=== PATIENT | male | born 1945 | race Caucasian/White ===

== ENCOUNTER 2016-07-29 16:39 | Inpatient (IN) | payer MEDICARE ==
[2016-07-29] MEDS ORDERED: NS 0.9% 1000 ML* 1,000 ML IV ONE ×2 (17:14→18:46)
--- NOTE | 2016-07-29 17:51 | RAD ---
Indication: Increased confusion, decreased p.o. intake. Pulmonary rales. Comparison: July 07, 2016 CT. Technique: Sitting AP and lateral chest views. Report: Mild airspace consolidation in the distribution of the lingula and anteromedial segment of the LEFT lower lobe without volume loss to suggest atelectasis. Negative for pleural effusion or pneumothorax. The heart, pulmonary vasculature, and mediastinal contours are unremarkable. Coronary artery calcification or stent noted. IMPRESSION: The constellation of findings is concerning for LEFT basilar pneumonia.
[2016-07-29 18:27] LABS: Hematocrit 24 % (42-52); Mean Corpuscular HGB Conc 33 g/dl (31-36); Mean Corpuscular Hemoglobin 31 pg (27-31); Mean Corpuscular Volume 96 fL (80-94); Mean Platelet Volume 8 um3 (7.4-10.4); Red Blood Count 2.55 10^6/ul (4.0-5.4); Red Cell Distribution Width 19 % (10.5-15); White Blood Count 15.9 10^3/ul (3.5-10.8)
[2016-07-29 18:45] LABS: Albumin 3.7 g/dL (3.2-5.2); BUN/Creatinine Ratio 27.6 (8-20); C Reactive Protein 18.52 mg/L (< 5.00); Calcium 9.1 mg/dL (8.6-10.3); EGFR African American 79.4 (>60); EGFR Non-African American 61.7 (>60); Potassium 4.1 mmol/L (3.5-5.0); Total Bilirubin 0.7 mg/dL (0.2-1.0); Total Protein 6.7 g/dL (6.4-8.9)
[2016-07-29] MEDS ORDERED: Levofloxacin 500 MG IVPREMIX(* 500 MG/100 ML BAG IVPB ONE (18:45)
[2016-07-29 18:49] LABS: Troponin I 3.07 ng/mL (<0.04)
[2016-07-29 19:45] LABS: Urine Bacteria 1+ (Absent); Urine Bilirubin Negative (Negative); Urine Glucose Negative (Negative); Urine Nitrite Negative (Negative)
[2016-07-29] MEDS ORDERED: Morphine INJ* 2 MG/ML 1 ML CARPUJECT IV PRN (20:19)
[2016-07-29] MEDS ORDERED: Iodixanol* (CONTRAST) 320 MG/ML 100 ML SDV IV ONE (20:22)
[2016-07-29] MEDS ORDERED: Morphine INJ* 2 MG/ML 1 ML CARPUJECT ONE (20:25)
[2016-07-29] MEDS ORDERED: NS 0.9% 1000 ML* 1,000 ML IV SCH ×2 (20:30→20:35)
[2016-07-29 20:42] LABS: Troponin I 1.65 ng/mL (<0.04)
[2016-07-29] MEDS ORDERED: Pantoprazole IV* 40 MG ONE (20:50)
[2016-07-29] MEDS ORDERED: fentaNYL* 50 MCG/ML 2 ML VIAL (100 MCG VIAL) IV SLOW PU PRN (20:50)
[2016-07-29] MEDS ORDERED: Pantoprazole IV* 40 MG IV ONE (20:50)
[2016-07-29] MEDS ORDERED: Albuterol 2.5 MG/3 ML NEB.SOL* (0.083%) INH PRN (21:15)
[2016-07-29] MEDS ORDERED: Acetaminophen TAB* 325 MG PO PRN (21:15)
--- NOTE | 2016-07-29 21:26 | RAD ---
Indication: Nausea, vomiting, confusion. Comparison: July 07, [address] Technique: Noncontrast CT vertex of skull through foramen magnum. Report: Mild prominence of the cerebral sulci, ventricles, and cerebellar fissures reflecting atrophy. Patent basal cisterns. Negative for tripathi matter white matter obscuration, intra or extra-axial hemorrhage, or mass effect. Decreased density in the periventricular and subcortical white matter while non-specific is most likely due to chronic microangiopathy. No suspicious lesion of the calvarium or skull base. Bilateral mastoid effusions without change. Clear visualized paranasal sinuses. Unremarkable scalp. IMPRESSION: No acute intracranial process evident. Involutional change and stigmata of chronic small vessel ischemic disease.
--- NOTE | 2016-07-29 21:36 | RAD ---
INDICATION: Question infectious colitis. Nausea and vomiting. COMPARISON: July 07, 2016 CT. TECHNIQUE: Multidetector CT images were obtained from the lung bases to the ischial tuberosities with 95 mL Visipaque 320 IV and oral contrast. Multiplanar reformation. REPORT: The visualized lower lung zones remarkable for LEFT greater than RIGHT patchy basilar alveolar opacities without volume loss most consistent with pneumonia. Negative for pleural effusions. Upper normal heart size. Decreased density of the liver consistent with fatty infiltration. No focal hepatic lesions or biliary dilatation. Normally distended gallbladder with multiple dependent stones. Unremarkable pancreas and spleen. Small splenule adjacent to the anterior margin of the spleen. Small medially projecting diverticulum at the second portion of the duodenum without suggestion of acute inflammatory change. Negative for CT abdomen malleolus of the small bowel, or medially extending appendix. A few colonic diverticula are visualized without findings of acute diverticulitis. Negative for ascites, free air, hernias. Normal adrenal glands. Unremarkable kidneys with symmetric nephrograms and pyelograms. Unremarkable nondilated ureters and distended urinary bladder. Coarse prostate calcifications. Symmetric seminal vesicles. Upper normal 0.9 cm hepatic artery level lymph node decreased from 1.6 cm previously. Negative for lymphadenopathy. Atherosclerotic plaque of normal diameter abdominal aorta and iliac arteries. Normal opacification of the mesenteric arteries and renal arteries. Partially decompressed IVC consistent with low volume state. Polyarticular degenerative arthropathy. No suspicious focal osseous lesions evident. IMPRESSION: 1. LEFT greater than RIGHT basilar pneumonia. 2. Fatty infiltration of the liver. 3. Cholelithiasis without additional CT abnormality of the gallbladder . 4. Negative for obstructive uropathy. 5. Interval decrease in size of hepatic artery level lymph node. Negative for lymphadenopathy. 6. Partially decompressed IVC consistent with low volume state.
[2016-07-29] MEDS ORDERED: Furosemide IV* 10 MG/ML VIAL (40 MG) IV SLOW PU ONE (21:42)
[2016-07-29] MEDS ORDERED: Furosemide IV* 10 MG/ML VIAL (40 MG) ONE (21:43)
--- NOTE | 2016-07-29 21:45 | HP ---
HISTORY AND PHYSICAL: * ADDENDUM: ASSESSMENT: Possible pneumonia - the patient received a dose of Levaquin in the emergency department, we will continue the Levaquin as there is suspected colitis based on his diffuse abdominal tenderness and he has been complaining of abdominal pain for quite sometime. Colitis might be a source of his bleeding as well. Can add Flagyl if CT scan confirms presence of colitis. Nausea and vomiting - with his recent cerebrovascular accident and anticoagulation, we will also scan his head to look for potential bleeders. This may also be an etiology of his recent complaints of nausea and vomiting. Disposition update: The patient became hypotensive with significant amount of melena while in the emergency department. The patient will be placed in the ICU for closer monitoring overnight. MIGUEL ÁNGEL PASCUAL [id number]/CPS #: [id number]
[2016-07-29] MEDS: Pantoprazole IV* 80 MG in NS 0.9% 250 ML* 250 ML IVPB SCH (21:47)
--- NOTE | 2016-07-29 22:02 | HP ---
ADDENDUM NOW INCLUDED ON THIS REPORT ADMISSION HISTORY AND PHYSICAL: DATE OF ADMISSION: 07/29/16 PRIMARY CARE PROVIDER: Unknown. ADMITTING PROVIDER: MIGUEL ÁNGEL Pascual SUPERVISING PHYSICIAN: Dr. Doc Moon.* (DICTATED BY MIGUEL ÁNGEL PASCUAL) CHIEF COMPLAINT: Lethargy, nausea, vomiting. HISTORY OF PRESENT ILLNESS: This is a 71-year-old gentleman with recent stroke and new-onset atrial fibrillation, who was discharged from the hospital to [facility] where he has been participating in rehab there. The patient' s sister and healthcare proxy has been visiting daily and states that he was doing relatively well up until Wednesday and since then, he has been vomiting on a daily basis. He has been complaining of abdominal pain actually for the last several weeks. He has been afebrile at home. He has developed relatively new cough. Denies any shortness of breath. He has an aspiration risk and requires his liquids to be nectar thickened and solids to be ground. The patient seemed to be increasingly lethargic and started to refuse food and seemed to be increasingly confused, which prompted evaluation today. Labs were completed from [facility] earlier today, which showed profound anemia, which prompted suspicion for a GI bleed. In regards to his recent history of stroke, the patient was started on Xarelto for anticoagulation with a presumed cardioembolic source of his CVA as he was also noted to be in atrial fibrillation for the first time. His sister denies any obvious sources of bleeding and notes in his vomit, no black or coffee ground consistency. PAST MEDICAL HISTORY: 1. Recent thromboembolic CVA with left-sided weakness including facial droop and slurred speech. 2. Hyperlipidemia. 3. Atrial fibrillation, anticoagulated with Xarelto. 4. Hypertension. 5. Diet-controlled diabetes. 6. History of coronary artery disease, status post PCI - last cardiac catheterization from 2008 showed severe stenosis in the circumflex distally, which was not amenable to stenting at that time. 7. Dementia. HOME MEDICATIONS: 1. Acetaminophen 1000 mg p.o. b.i.d. as needed. 2. Ventolin inhaler 2.5 mg inhaled 3 times daily as needed for shortness of breath. 3. Aspirin 81 mg p.o. daily. 4. Atorvastatin 80 mg p.o. at bedtime. 5. Vitamin D 2000 units p.o. daily. 6. Lexapro 10 mg p.o. daily. 7. Metoprolol tartrate 12.5 mg p.o. daily. 8. Xarelto 15 mg p.o. b.i.d. 9. Flomax 0.4 mg p.o. daily. 10. Mucinex 600 mg p.o. b.i.d. SOCIAL HISTORY: The patient is currently at [facility] for rehab after recent CVA. His sister is quite involved in his care. Her name is Ventura Posey and acts as the healthcare proxy. REVIEW OF SYSTEMS: As noted above in the HPI. The patient is a limited historian. I am unable to complete full review of systems. PHYSICAL EXAMINATION GENERAL: This is an elderly male, lying in the hospital bed accompanied by his sister and another female family member. He reports that he is uncomfortable and is fidgeting and slightly agitated. VITAL SIGNS: Temperature 97.3 degrees Fahrenheit, pulse 88 beats per minute, respiratory rate 16 per minute, oxygen saturation 94% on room air, blood pressure 112/66 mmHg. HEENT: Head is normocephalic and atraumatic with mildly dry mucous membranes. RESPIRATORY: Lungs are clear to auscultation without wheezes, crackles, or rhonchi. CARDIOVASCULAR: Heart has regular rate and rhythm without murmurs, rubs, or gallops. ABDOMEN: Abdomen is soft, but diffusely tender to palpation and the patient has some involuntary guarding. SKIN: Limited exam shows no concerning rashes or lesions. PSYCH: The patient is alert, but questionable orientation and is occasionally agitated. LABORATORY EVALUATION: CBC shows a white blood cell count of 15,900, hemoglobin of 8 g/dL, platelet count of 284,000. Comprehensive metabolic panel shows normal sodium of 138 mmol/L, potassium 4.1 mmol/L, BUN is elevated at 32, creatinine 1.16 with an estimated GFR of 61. Lactic acid elevated at 2.1. Random glucose 136 mg/dL. Transaminases and total bilirubin within normal limits. Initial troponin significantly elevated at 3.07. CRP mildly elevated at 18.52. Lipase normal at 51. IMAGING: Chest x-ray shows a subtle left basilar infiltrate suggestive of possible pneumonia. EKG shows a sinus rhythm with a right bundle branch block, unchanged from prior. ASSESSMENT AND PLAN: This is a 71-year-old gentleman with relatively new cerebrovascular accident, anticoagulated on Xarelto, known atrial fibrillation, and coronary artery disease, who presents with a suspected GI bleed and significantly elevated troponin. 1. GI bleeding - stool is still pending results, but nursing recently told me that they noted a large amount of melena. The patient has been anticoagulated with Xarelto and this will be held. Unfortunately, it looks like the patient was receiving pulmonary embolism and deep venous thrombosis treatments dosing rather than prophylactic dosing for his atrial fibrillation increasing his risk for bleed. We will start with transfusing one unit of packed red blood cells and closely monitoring hematocrit and hemoglobin. The patient's family would like limited intervention, but does agree to endoscopy if bleeding does not stop spontaneously. Supporting with IV fluids at this time until blood is available for transfusion. 2. Elevated troponin - troponin is significantly elevated. The patient does not have any complaints of chest pain and no changes on EKG. He does have a known history of coronary disease based on cardiac catheterization from almost 8 years ago. He cannot be anticoagulated due to the presence of bleeding and the patient's family does not wish to undergo cardiac catheterization. Echocardiogram will be performed in the morning to look for wall motion changes , will support with blood transfusion assuming that this is at least partially related to demand likely with a fixed lesion. 3. Acute blood loss anemia secondary to GI bleed. 4. Elevated lactic acid likely due to hypoperfusion secondary to GI bleed. 5. Recent history of cerebrovascular accident - thromboembolic in origin with left- sided deficits including significant weakness in left upper and left lower extremity, the patient is unable to ambulate at baseline with a left facial droop and slurred speech. 6. Dementia - the patient has favo-wr-srnrtsth dementia. 7. Atrial fibrillation - currently in sinus rhythm, has been anticoagulated with Xarelto, which will be held in the setting of bleeding, continue beta- yeimi to maintain rate control. 8. Hypertension - we will continue his beta-yeimi, but hold any other antihypertensives in the setting of bleeding. 9. Dementia - [id number] with some behavioral concerns. 10. Code status - the patient has a signed MOLST, who is DNR/DNI confirmed. 11. Healthcare proxy is his sister, Ventura Posey. 12. DVT prophylaxis - DVT prophylaxis is contraindicated in the setting of continued bleeding. DISPOSITION: The patient is being admitted to inpatient status with anticipated length of stay of greater than 2 days. MIGUEL ÁNGEL PASCUAL ADDENDUM: ASSESSMENT: Possible pneumonia - the patient received a dose of Levaquin in the emergency department, we will continue the Levaquin as there is suspected colitis based on his diffuse abdominal tenderness and he has been complaining of abdominal pain for quite sometime. Colitis might be a source of his bleeding as well. Can add Flagyl if CT scan confirms presence of colitis. Nausea and vomiting - with his recent cerebrovascular accident and anticoagulation, we will also scan his head to look for potential bleeders. This may also be an etiology of his recent complaints of nausea and vomiting. Disposition update: The patient became hypotensive with significant amount of melena while in the emergency department. The patient will be placed in the ICU for closer monitoring overnight. MIGUEL ÁNGEL PASCUAL [id number]/CPS #: [id number]/CPS #: [id number] CARMEN
[2016-07-29] MEDS ORDERED: Furosemide IV* 10 MG/ML 2 ML VIAL (20 MG) IV SCH ×2 (23:00)
[2016-07-29 23:48] LABS: Hematocrit 23 % (42-52); Hemoglobin 7.4 g/dl (14.0-18.0)
--- NOTE | 2016-07-30 00:35 | ED ---
Marlo Still Karl, scribed for Tulio Moreno MD on 07/29/16 at 1659 . Altered Mental Status - HPI Summary HPI Summary: Pt is a 71 y/o male BIBA from [facility] that presents to the ED c/o AMS. Pt reported that he has not been eating or drinking regularly, and every time he tries to he vomits. Pt also reported nausea and stated "I couldn't hold anything down." Per pt's daughter, at bedside, the pt has been suffering from increased confusion and inability to eat or drink without vomiting for the past 3 days, stating "sitting in his room he looked green and he looked worse and worse every day." Hx: A-fib, HTN, DM. - History Of Current Complaint Chief Complaint: EDAltMentalStatus Stated Complaint: WEAKNESS Time Seen by Provider: 07/29/16 16:45 Hx Obtained From: Patient Last Known Well Date: 07/25/16 Onset/Duration: Still Present, Gradually Timing: Constant Severity Initially: Mild Severity Currently: Mild Character: Confusion Aggravating Factor(s): Nothing Alleviating Factor(s): Nothing Associated Signs And Symptoms: Positive: Nausea, Vomiting - Allergies/Home Medications Allergies/Adverse Reactions: Allergies Allergy/AdvReac Type Severity Reaction Status Date / Time Banana Allergy Swelling Verified 07/29/16 16:50 Lactose Intolerance (GI) Allergy GI Upset Verified 07/29/16 16:50 Home Medications: Home Medications Acetaminophen [Acetaminophen Extra Stren] 1,000 mg PO BID PRN 07/29/16 [History Confirmed 07/29/16] Albuterol 2.5MG/3ML (0.083%)* [Ventolin 2.5 MG/3 ML NEB.ALTA*] 2.5 mg INH TID PRN 07/29/16 [History Confirmed 07/29/16] Atorvastatin* [Lipitor 80 MG*] 80 mg PO BEDTIME 07/29/16 [History Confirmed ] Cholecalciferol TAB* [Vitamin D TAB*] 2,000 units PO DAILY 07/29/16 [History Confirmed 07/29/16] Escitalopram (NF) [Lexapro (NF)] 10 mg PO QAM 07/29/16 [History Confirmed ] Lidocaine 1%* [Xylocaine 1%*] 2.1 ml IM QPM 07/29/16 [History Confirmed 07/29/16 ] Metoprolol Tartrate TAB* [Lopressor TAB*] 12.5 mg PO DAILY 07/29/16 [History Confirmed 07/29/16] Rivaroxaban TAB(*) [Xarelto 15 mg(*)] 15 mg PO BID 07/29/16 [History Confirmed 07/29/16] Tamsulosin CAP* [Flomax CAP*] 0.4 mg PO DAILY 07/29/16 [History Confirmed ] guaiFENesin ER TAB [Mucinex*] 600 mg PO BID PRN 07/29/16 [History Confirmed ] PMH/Surg Hx/FS Hx/Imm Hx Endocrine/Hematology History: Reports: Hx Diabetes Cardiovascular History: Reports: Hx Coronary Artery Disease, Hx Hypertension Denies: Hx Pacemaker/ICD Respiratory History: Denies: Hx Asthma History: Denies: Hx Renal Disease Musculoskeletal History: Denies: Hx Arthritis, Hx Back Problems, Hx Bursitis, Hx Congenital Bone Abnormalities, Hx Fibromyalgia, Hx Gout, Hx Orthopedic Injury, Hx Osteoporosis, Hx Scoliosis, Hx Tendonitis, Other Musculoskeletal History Sensory History: Reports: Hx Contacts or Glasses, Hx Hearing Problem - [place] Denies: Hx Cataracts, Hx Eye Injury, Hx Eye Prosthesis, Hx Glaucoma, Hx Legally Blind, Hx Macular Degeneration, Hx Vision Problem, Hx Deafness, Hx Hearing Aid, Other Sensory Impairments Opthamlomology History: Reports: Hx Contacts or Glasses Denies: Hx Cataracts, Hx Eye Injury, Hx Eye Prosthesis, Hx Glaucoma, Hx Legally Blind, Hx Macular Degeneration, Hx Vision Problem, Other Sensory Impairments Neurological History: Denies: Hx Dementia, Hx Developmental Delay, Hx Headaches, Hx Migraine, Hx Nerve Disease, Hx Seizures, Hx Spinal Cord Injury, Hx Transient Ischemic Attacks (TIA), Other Neuro Impairments/Disorders Psychiatric History: Denies: Hx Panic Disorder - Surgical History Surgery Procedure, Year, and Place: TONSILLECTOMY Hx Anesthesia Reactions: No Infectious Disease History: Unable to Obtain/Confirm Infectious Disease History: Denies: Hx Clostridium Difficile, Hx Hepatitis, Hx Human Immunodeficiency Virus (HIV), Hx of Known/Suspected MRSA, Hx Shingles, Hx Tuberculosis, History Other Infectious Disease, Traveled Outside the [place] in Last 30 Days - Family History Known Family History: Positive: Diabetes - Social History Alcohol Use: None Substance Use Type: Reports: None Substance Use Comment - Amount & Last Used: unable to assess at this time Smoking Status (MU): Never Smoked Tobacco Have You Smoked in the Last Year: No Review of Systems Constitutional: Negative Eyes: Negative ENT: Negative Cardiovascular: Negative Positive: Cough Gastrointestinal: Other - decreased oral intake Positive: Vomiting, Nausea Genitourinary: Negative Musculoskeletal: Negative Skin: Negative Neurological: Other - confusion Psychological: Normal All Other Systems Reviewed And Are Negative: Yes Physical Exam Triage Information Reviewed: Yes Vital Signs On Initial Exam: Initial Vitals Temp Pulse Resp BP Pulse Ox 97.3 F 88 16 112/66 94 07/29/16 16:42 07/29/16 16:42 07/29/16 16:42 07/29/16 16:42 07/29/16 16:42 Vital Signs Reviewed: Yes Appearance: Positive: Well-Appearing, No Pain Distress Skin: Positive: Other - mild skin tenting Head/Face: Positive: Normal Head/Face Inspection Eyes: Positive: Normal ENT: Positive: Other - dry mucous membranes Neck: Positive: Supple, Nontender Respiratory/Lung Sounds: Positive: Clear to Auscultation, Breath Sounds Present , Other - wet cough Cardiovascular: Positive: RRR Abdomen Description: Positive: Nontender, Soft Bowel Sounds: Positive: Present Musculoskeletal: Positive: Normal Neurological: Positive: Normal Psychiatric: Positive: Normal, Affect/Mood Appropriate Diagnostics - Vital Signs Vital Signs Temp Pulse Resp BP Pulse Ox 07/29/16 16:42 97.3 F 88 16 112/66 94 - Laboratory Lab Results: Lab Results 07/29/16 07/29/16 07/29/16 Range/Units 18:15 18:15 18:15 WBC 15.9 H (3.5-10.8) 10^3/ul RBC 2.55 L (4.0-5.4) 10^6/ul Hgb 8.0 L (14.0-18.0) g/dl Hct 24 L (42-52) % MCV 96 H (80-94) fL MCH 31 (27-31) pg MCHC 33 (31-36) g/dl RDW 19 H (10.5-15) % Plt Count 284 (150-450) 10^3/ul MPV 8 (7.4-10.4) um3 Neut % (Auto) 81.4 (38-83) % Lymph % (Auto) 10.4 L (25-47) % Ramsey % (Auto) 7.2 (1-9) % Eos % (Auto) 0.1 (0-6) % Baso % (Auto) 0.9 (0-2) % Absolute Neuts (auto) 12.9 H (1.5-7.7) 10^3/ul Absolute Lymphs (auto) 1.7 (1.0-4.8) 10^3/ul Absolute Monos (auto) 1.1 H (0-0.8) 10^3/ul Absolute Eos (auto) 0 (0-0.6) 10^3/ul Absolute Basos (auto) 0.1 (0-0.2) 10^3/ul Absolute Nucleated RBC 0.01 10^3/ul Nucleated RBC % 0.1 INR (Anticoag Therapy) (0.89-1.11) APTT (26.0-36.3) seconds Sodium 138 (133-145) mmol/L Potassium 4.1 (3.5-5.0) mmol/L Chloride 100 L (101-111) mmol/L Carbon Dioxide 30 (22-32) mmol/L Anion Gap 8 (2-11) mmol/L BUN 32 H (6-24) mg/dL Creatinine 1.16 (0.67-1.17) mg/dL Est GFR ( Amer) 79.4 (>60) Est GFR (Non-Af Amer) 61.7 (>60) BUN/Creatinine Ratio 27.6 H (8-20) Glucose 136 H (70-100) mg/dL Lactic Acid 2.1 H* (0.5-2.0) mmol/L Calcium 9.1 (8.6-10.3) mg/dL Total Bilirubin 0.70 (0.2-1.0) mg/dL AST 31 (13-39) U/L ALT 18 (7-52) U/L Alkaline Phosphatase 69 (34-104) U/L Total Creatine Kinase (10-223) U/L CK-MB (CK-2) (0.6-6.3) ng/mL Troponin I 3.07 H* (<0.04) ng/mL C-Reactive Protein 18.52 H (< 5.00) mg/L Total Protein 6.7 (6.4-8.9) g/dL Albumin 3.7 (3.2-5.2) g/dL Globulin 3.0 (2-4) g/dL Albumin/Globulin Ratio 1.2 (1-3) Lipase 51 (11.0-82.0) U/L Urine Color Urine Appearance Urine pH (5-9) Ur Specific [place] (1.010-1.030) Urine Protein (Negative) Urine Ketones (Negative) Urine Blood (Negative) Urine Nitrate (Negative) Urine Bilirubin (Negative) Urine Urobilinogen (Negative) Ur Leukocyte Esterase (Negative) Urine WBC (Auto) (Absent) Urine RBC (Auto) (Absent) Ur Squamous Epith Cells (Absent) Urine Bacteria (Absent) Urine Glucose (Negative) Blood Type Antibody Screen Crossmatch 07/29/16 07/29/16 07/29/16 Range/Units 18:15 18:15 19:10 WBC (3.5-10.8) 10^3/ul RBC (4.0-5.4) 10^6/ul Hgb (14.0-18.0) g/dl Hct (42-52) % MCV (80-94) fL MCH (27-31) pg MCHC (31-36) g/dl RDW (10.5-15) % Plt Count (150-450) 10^3/ul MPV (7.4-10.4) um3 Neut % (Auto) (38-83) % Lymph % (Auto) (25-47) % Ramsey % (Auto) (1-9) % Eos % (Auto) (0-6) % Baso % (Auto) (0-2) % Absolute Neuts (auto) (1.5-7.7) 10^3/ul Absolute Lymphs (auto) (1.0-4.8) 10^3/ul Absolute Monos (auto) (0-0.8) 10^3/ul Absolute Eos (auto) (0-0.6) 10^3/ul Absolute Basos (auto) (0-0.2) 10^3/ul Absolute Nucleated RBC 10^3/ul Nucleated RBC % INR (Anticoag Therapy) 1.73 H (0.89-1.11) APTT 37.5 H (26.0-36.3) seconds Sodium (133-145) mmol/L Potassium (3.5-5.0) mmol/L Chloride (101-111) mmol/L Carbon Dioxide (22-32) mmol/L Anion Gap (2-11) mmol/L BUN (6-24) mg/dL Creatinine (0.67-1.17) mg/dL Est GFR ( Amer) (>60) Est GFR (Non-Af Amer) (>60) BUN/Creatinine Ratio (8-20) Glucose (70-100) mg/dL Lactic Acid (0.5-2.0) mmol/L Calcium (8.6-10.3) mg/dL Total Bilirubin (0.2-1.0) mg/dL AST (13-39) U/L ALT (7-52) U/L Alkaline Phosphatase (34-104) U/L Total Creatine Kinase (10-223) U/L CK-MB (CK-2) (0.6-6.3) ng/mL Troponin I (<0.04) ng/mL C-Reactive Protein (< 5.00) mg/L Total Protein (6.4-8.9) g/dL Albumin (3.2-5.2) g/dL Globulin (2-4) g/dL Albumin/Globulin Ratio (1-3) Lipase (11.0-82.0) U/L Urine Color Yellow Urine Appearance Cloudy Urine pH 5.0 (5-9) Ur Specific [place] 1.012 (1.010-1.030) Urine Protein Negative (Negative) Urine Ketones Negative (Negative) Urine Blood Negative (Negative) Urine Nitrate Negative (Negative) Urine Bilirubin Negative (Negative) Urine Urobilinogen Negative (Negative) Ur Leukocyte Esterase 3+ H (Negative) Urine WBC (Auto) 3+(>20/hpf) H (Absent) Urine RBC (Auto) 3+(>10/hpf) H (Absent) Ur Squamous Epith Cells Present H (Absent) Urine Bacteria 1+ H (Absent) Urine Glucose Negative (Negative) Blood Type O Negative Antibody Screen Negative Crossmatch See Detail 07/29/16 Range/Units 20:15 WBC (3.5-10.8) 10^3/ul RBC (4.0-5.4) 10^6/ul Hgb (14.0-18.0) g/dl Hct (42-52) % MCV (80-94) fL MCH (27-31) pg MCHC (31-36) g/dl RDW (10.5-15) % Plt Count (150-450) 10^3/ul MPV (7.4-10.4) um3 Neut % (Auto) (38-83) % Lymph % (Auto) (25-47) % Ramsey % (Auto) (1-9) % Eos % (Auto) (0-6) % Baso % (Auto) (0-2) % Absolute Neuts (auto) (1.5-7.7) 10^3/ul Absolute Lymphs (auto) (1.0-4.8) 10^3/ul Absolute Monos (auto) (0-0.8) 10^3/ul Absolute Eos (auto) (0-0.6) 10^3/ul Absolute Basos (auto) (0-0.2) 10^3/ul Absolute Nucleated RBC 10^3/ul Nucleated RBC % INR (Anticoag Therapy) (0.89-1.11) APTT (26.0-36.3) seconds Sodium (133-145) mmol/L Potassium (3.5-5.0) mmol/L Chloride (101-111) mmol/L Carbon Dioxide (22-32) mmol/L Anion Gap (2-11) mmol/L BUN (6-24) mg/dL Creatinine (0.67-1.17) mg/dL Est GFR ( Amer) (>60) Est GFR (Non-Af Amer) (>60) BUN/Creatinine Ratio (8-20) Glucose (70-100) mg/dL Lactic Acid (0.5-2.0) mmol/L Calcium (8.6-10.3) mg/dL Total Bilirubin (0.2-1.0) mg/dL AST (13-39) U/L ALT (7-52) U/L Alkaline Phosphatase (34-104) U/L Total Creatine Kinase 148 (10-223) U/L CK-MB (CK-2) 43.8 H (0.6-6.3) ng/mL Troponin I 1.65 H* (<0.04) ng/mL C-Reactive Protein (< 5.00) mg/L Total Protein (6.4-8.9) g/dL Albumin (3.2-5.2) g/dL Globulin (2-4) g/dL Albumin/Globulin Ratio (1-3) Lipase (11.0-82.0) U/L Urine Color Urine Appearance Urine pH (5-9) Ur Specific [place] (1.010-1.030) Urine Protein (Negative) Urine Ketones (Negative) Urine Blood (Negative) Urine Nitrate (Negative) Urine Bilirubin (Negative) Urine Urobilinogen (Negative) Ur Leukocyte Esterase (Negative) Urine WBC (Auto) (Absent) Urine RBC (Auto) (Absent) Ur Squamous Epith Cells (Absent) Urine Bacteria (Absent) Urine Glucose (Negative) Blood Type Antibody Screen Crossmatch Result Diagrams: 07/29/16 23:41 07/29/16 18:15 Lab Statement: Any lab studies that have been ordered have been reviewed, and results considered in the medical decision making process. - Radiology CXR Xray Interpretation: Positive (See Comments) Radiology Interpretation Completed By: Radiologist - IMPRESSION: The constellation of findings is concerning for LEFT basilar pneumonia. - EKG 18:04 EKG Interpretation: NSR at 81 bpm, non-specific ST depressions, no change from prior EKG Altered Mental Statu Course/Dx - Course Course Of Treatment: Jarod Carter presented with a C/O weakness secondary to not eating because of N/V for several days. He denied CP of SOB but his family reported some coughing. His WBC's were elevated and he had an infiltrate on CXR so he was treated for pneumonia. His troponin returned elevated at 2 and his Hemoglobin was 8. He passed a black stool here and was typede for transfusion. - Diagnoses Discharge Diagnoses: Pneumonia, GI bleed - Provider Notifications Discussed Care Of Patient With: Dr. Christy (Hospitalist) at 18:55. - Critical Care Time Critical Care Time: 30-74 min Discharge - Discharge Plan Condition: Stable Disposition: ADMITTED TO [facility] documentation as recorded by the Marlo yun Karl accurately reflects the service I personally performed and the decisions made by me, Tulio Moreno MD.
[2016-07-30 03:43] LABS: Hematocrit 26 % (42-52); Hemoglobin 8.6 g/dl (14.0-18.0)
[2016-07-30 04:06] LABS: Troponin I 12.73 ng/mL (<0.04)
[2016-07-30 06:05] LABS: Magnesium 2.1 mg/dL (1.9-2.7)
[2016-07-30] MEDS: Pantoprazole IV* 80 MG in NS 0.9% 250 ML* 250 ML IVPB SCH ×2 (06:28→16:59)
[2016-07-30] MEDS ORDERED: Metoprolol Tartrate TAB* 25 MG PO SCH (08:30)
[2016-07-30] MEDS: Citalopram TAB* 20 MG PO SCH (09:14)
--- NOTE | 2016-07-30 09:42 | PN ---
Subjective Date of Service: 07/30/16 Objective Active Medications: Acetaminophen (Tylenol Tab*) 975 mg PO Q12H PRN PRN Reason: FEVER/PAIN Albuterol (Ventolin 2.5 Mg/3 Ml Neb.Isabel*) 2.5 mg INH Q8H PRN PRN Reason: SHORTNESS OF BREATH Citalopram Hydrobromide (Celexa Tab*) 20 mg PO DAILY [facility] Last Admin: 07/30/16 09:14 Dose: 20 mg Fentanyl Citrate (Fentanyl*) 25 mcg IV SLOW PU Q1H PRN PRN Reason: PAIN Levofloxacin/Dextrose (Levaquin 500 Mg Ivpremix(*)) 500 mg in 100 mls @ 100 mls /hr IVPB Q24H [facility] Pantoprazole Sodium 80 mg/ (Sodium Chloride) 250 mls @ 25 mls/hr IVPB Q10H [facility] Last Admin: 07/30/16 06:28 Dose: 25 mls/hr Metoprolol Tartrate (Lopressor Tab*) 12.5 mg PO DAILY WITH MEAL [facility] Last Admin: 07/30/16 09:14 Dose: 12.5 mg Vital Signs 07/29/16 07/29/16 07/29/16 20:30 21:10 21:30 Temperature Pulse Rate 116 Respiratory 29 Rate Blood Pressure 87/70 92/65 (mmHg) O2 Sat by Pulse 95 Oximetry 07/29/16 07/29/16 07/29/16 21:35 21:57 21:59 Temperature Pulse Rate 117 114 112 Respiratory 30 26 Rate Blood Pressure 97/65 94/70 (mmHg) O2 Sat by Pulse 93 98 99 Oximetry 07/29/16 07/29/16 07/29/16 22:00 22:08 22:16 Temperature Pulse Rate 110 111 Respiratory 21 27 34 Rate Blood Pressure (mmHg) O2 Sat by Pulse 100 99 Oximetry 07/29/16 07/29/16 07/29/16 22:22 22:30 22:45 Temperature Pulse Rate 107 108 Respiratory 24 22 Rate Blood Pressure 101/62 110/53 102/62 (mmHg) O2 Sat by Pulse 100 100 Oximetry 07/29/16 07/29/16 07/29/16 23:00 23:15 23:30 Temperature Pulse Rate 108 109 102 Respiratory 25 22 22 Rate Blood Pressure 104/66 102/56 99/57 (mmHg) O2 Sat by Pulse 100 99 100 Oximetry 07/29/16 07/29/16 07/30/16 23:43 23:45 00:00 Temperature 98.6 F 98.6 F Pulse Rate 113 98 108 Respiratory 24 22 25 Rate Blood Pressure 106/72 102/61 (mmHg) O2 Sat by Pulse 100 100 99 Oximetry 07/30/16 07/30/16 07/30/16 00:01 00:16 00:33 Temperature 99.3 F Pulse Rate 107 95 Respiratory 20 23 21 Rate Blood Pressure 104/64 (mmHg) O2 Sat by Pulse 100 100 Oximetry 07/30/16 07/30/16 07/30/16 01:00 01:46 02:00 Temperature 98.9 F 98.9 F Pulse Rate 95 92 Respiratory 20 23 24 Rate Blood Pressure 97/53 92/56 (mmHg) O2 Sat by Pulse 100 100 Oximetry 07/30/16 07/30/16 07/30/16 02:56 03:00 03:48 Temperature 98.7 F 98.6 F Pulse Rate 88 88 Respiratory 20 22 26 Rate Blood Pressure 89/54 92/61 (mmHg) O2 Sat by Pulse 100 100 Oximetry 07/30/16 07/30/16 07/30/16 04:00 04:24 04:27 Temperature 98.3 F 98.2 F Pulse Rate 84 91 Respiratory 20 20 27 Rate Blood Pressure 91/59 90/37 (mmHg) O2 Sat by Pulse 100 100 Oximetry 07/30/16 07/30/16 07/30/16 05:00 05:49 06:00 Temperature 97.3 F 97.4 F Pulse Rate 84 86 Respiratory 19 25 28 Rate Blood Pressure 91/57 93/56 (mmHg) O2 Sat by Pulse 100 100 Oximetry 07/30/16 07/30/16 07/30/16 06:30 07:00 07:56 Temperature 98.6 F 98.7 F Pulse Rate 85 Respiratory 14 17 18 Rate Blood Pressure 89/66 (mmHg) O2 Sat by Pulse 100 Oximetry 07/30/16 08:00 Temperature 98.4 F Pulse Rate 84 Respiratory 20 Rate Blood Pressure 101/60 (mmHg) O2 Sat by Pulse 100 Oximetry Result Diagrams: 07/30/16 09:45 07/29/16 18:15 Additional Lab and Data: Lab Results 01/18/17 01/18/17 01/18/17 Range/Units 18:15 18:15 18:15 WBC 15.9 H (3.5-10.8) 10^3/ul RBC 2.55 L (4.0-5.4) 10^6/ul Hgb 8.0 L (14.0-18.0) g/dl Hct 24 L (42-52) % MCV 96 H (80-94) fL MCH 31 (27-31) pg MCHC 33 (31-36) g/dl RDW 19 H (10.5-15) % Plt Count 284 (150-450) 10^3/ul MPV 8 (7.4-10.4) um3 Neut % (Auto) 81.4 (38-83) % Lymph % (Auto) 10.4 L (25-47) % [place] % (Auto) 7.2 (1-9) % Eos % (Auto) 0.1 (0-6) % Baso % (Auto) 0.9 (0-2) % Absolute Neuts (auto) 12.9 H (1.5-7.7) 10^3/ul Absolute Lymphs (auto) 1.7 (1.0-4.8) 10^3/ul Absolute Monos (auto) 1.1 H (0-0.8) 10^3/ul Absolute Eos (auto) 0 (0-0.6) 10^3/ul Absolute Basos (auto) 0.1 (0-0.2) 10^3/ul Absolute Nucleated RBC 0.01 10^3/ul Nucleated RBC % 0.1 INR (Anticoag Therapy) (0.89-1.11) APTT (26.0-36.3) seconds Sodium 138 (133-145) mmol/L Potassium 4.1 (3.5-5.0) mmol/L Chloride 100 L (101-111) mmol/L Carbon Dioxide 30 (22-32) mmol/L Anion Gap 8 (2-11) mmol/L BUN 32 H (6-24) mg/dL Creatinine 1.16 (0.67-1.17) mg/dL Est GFR ( Amer) 79.4 (>60) Est GFR (Non-Af Amer) 61.7 (>60) BUN/Creatinine Ratio 27.6 H (8-20) Glucose 136 H (70-100) mg/dL Lactic Acid 2.1 H* (0.5-2.0) mmol/L Calcium 9.1 (8.6-10.3) mg/dL Total Bilirubin 0.70 (0.2-1.0) mg/dL AST 31 (13-39) U/L ALT 18 (7-52) U/L Alkaline Phosphatase 69 (34-104) U/L Total Creatine Kinase (10-223) U/L CK-MB (CK-2) (0.6-6.3) ng/mL Troponin I 3.07 H* (<0.04) ng/mL C-Reactive Protein 18.52 H (< 5.00) mg/L Total Protein 6.7 (6.4-8.9) g/dL Albumin 3.7 (3.2-5.2) g/dL Globulin 3.0 (2-4) g/dL Albumin/Globulin Ratio 1.2 (1-3) Lipase 51 (11.0-82.0) U/L Urine Color Urine Appearance Urine pH (5-9) Ur Specific [place] (1.010-1.030) Urine Protein (Negative) Urine Ketones (Negative) Urine Blood (Negative) Urine Nitrate (Negative) Urine Bilirubin (Negative) Urine Urobilinogen (Negative) Ur Leukocyte Esterase (Negative) Urine WBC (Auto) (Absent) Urine RBC (Auto) (Absent) Ur Squamous Epith Cells (Absent) Urine Bacteria (Absent) Urine Glucose (Negative) Blood Type Antibody Screen Crossmatch 07/29/16 07/29/16 07/29/16 Range/Units 18:15 18:15 19:10 WBC (3.5-10.8) 10^3/ul RBC (4.0-5.4) 10^6/ul Hgb (14.0-18.0) g/dl Hct (42-52) % MCV (80-94) fL MCH (27-31) pg MCHC (31-36) g/dl RDW (10.5-15) % Plt Count (150-450) 10^3/ul MPV (7.4-10.4) um3 Neut % (Auto) (38-83) % Lymph % (Auto) (25-47) % [place] % (Auto) (1-9) % Eos % (Auto) (0-6) % Baso % (Auto) (0-2) % Absolute Neuts (auto) (1.5-7.7) 10^3/ul Absolute Lymphs (auto) (1.0-4.8) 10^3/ul Absolute Monos (auto) (0-0.8) 10^3/ul Absolute Eos (auto) (0-0.6) 10^3/ul Absolute Basos (auto) (0-0.2) 10^3/ul Absolute Nucleated RBC 10^3/ul Nucleated RBC % INR (Anticoag Therapy) 1.73 H (0.89-1.11) APTT 37.5 H (26.0-36.3) seconds Sodium (133-145) mmol/L Potassium (3.5-5.0) mmol/L Chloride (101-111) mmol/L Carbon Dioxide (22-32) mmol/L Anion Gap (2-11) mmol/L BUN (6-24) mg/dL Creatinine (0.67-1.17) mg/dL Est GFR ( Amer) (>60) Est GFR (Non-Af Amer) (>60) BUN/Creatinine Ratio (8-20) Glucose (70-100) mg/dL Lactic Acid (0.5-2.0) mmol/L Calcium (8.6-10.3) mg/dL Total Bilirubin (0.2-1.0) mg/dL AST (13-39) U/L ALT (7-52) U/L Alkaline Phosphatase (34-104) U/L Total Creatine Kinase (10-223) U/L CK-MB (CK-2) (0.6-6.3) ng/mL Troponin I (<0.04) ng/mL C-Reactive Protein (< 5.00) mg/L Total Protein (6.4-8.9) g/dL Albumin (3.2-5.2) g/dL Globulin (2-4) g/dL Albumin/Globulin Ratio (1-3) Lipase (11.0-82.0) U/L Urine Color Yellow Urine Appearance Cloudy Urine pH 5.0 (5-9) Ur Specific [place] 1.012 (1.010-1.030) Urine Protein Negative (Negative) Urine Ketones Negative (Negative) Urine Blood Negative (Negative) Urine Nitrate Negative (Negative) Urine Bilirubin Negative (Negative) Urine Urobilinogen Negative (Negative) Ur Leukocyte Esterase 3+ H (Negative) Urine WBC (Auto) 3+(>20/hpf) H (Absent) Urine RBC (Auto) 3+(>10/hpf) H (Absent) Ur Squamous Epith Cells Present H (Absent) Urine Bacteria 1+ H (Absent) Urine Glucose Negative (Negative) Blood Type O Negative Antibody Screen Negative Crossmatch See Detail 07/29/16 Range/Units 20:15 WBC (3.5-10.8) 10^3/ul RBC (4.0-5.4) 10^6/ul Hgb (14.0-18.0) g/dl Hct (42-52) % MCV (80-94) fL MCH (27-31) pg MCHC (31-36) g/dl RDW (10.5-15) % Plt Count (150-450) 10^3/ul MPV (7.4-10.4) um3 Neut % (Auto) (38-83) % Lymph % (Auto) (25-47) % [place] % (Auto) (1-9) % Eos % (Auto) (0-6) % Baso % (Auto) (0-2) % Absolute Neuts (auto) (1.5-7.7) 10^3/ul Absolute Lymphs (auto) (1.0-4.8) 10^3/ul Absolute Monos (auto) (0-0.8) 10^3/ul Absolute Eos (auto) (0-0.6) 10^3/ul Absolute Basos (auto) (0-0.2) 10^3/ul Absolute Nucleated RBC 10^3/ul Nucleated RBC % INR (Anticoag Therapy) (0.89-1.11) APTT (26.0-36.3) seconds Sodium (133-145) mmol/L Potassium (3.5-5.0) mmol/L Chloride (101-111) mmol/L Carbon Dioxide (22-32) mmol/L Anion Gap (2-11) mmol/L BUN (6-24) mg/dL Creatinine (0.67-1.17) mg/dL Est GFR ( Amer) (>60) Est GFR (Non-Af Amer) (>60) BUN/Creatinine Ratio (8-20) Glucose (70-100) mg/dL Lactic Acid (0.5-2.0) mmol/L Calcium (8.6-10.3) mg/dL Total Bilirubin (0.2-1.0) mg/dL AST (13-39) U/L ALT (7-52) U/L Alkaline Phosphatase (34-104) U/L Total Creatine Kinase 148 (10-223) U/L CK-MB (CK-2) 43.8 H (0.6-6.3) ng/mL Troponin I 1.65 H* (<0.04) ng/mL C-Reactive Protein (< 5.00) mg/L Total Protein (6.4-8.9) g/dL Albumin (3.2-5.2) g/dL Globulin (2-4) g/dL Albumin/Globulin Ratio (1-3) Lipase (11.0-82.0) U/L Urine Color Urine Appearance Urine pH (5-9) Ur Specific Armstrong (1.010-1.030) Urine Protein (Negative) Urine Ketones (Negative) Urine Blood (Negative) Urine Nitrate (Negative) Urine Bilirubin (Negative) Urine Urobilinogen (Negative) Ur Leukocyte Esterase (Negative) Urine WBC (Auto) (Absent) Urine RBC (Auto) (Absent) Ur Squamous Epith Cells (Absent) Urine Bacteria (Absent) Urine Glucose (Negative) Blood Type Antibody Screen Crossmatch Microbiology and Other Data: Microbiology 07/29/16 22:05 Nasal Screen MRSA (PCR)([facility]) - Final Nasal Mrsa Negative Assess/Plan/Problems-Billing Assessment: Mr. Garza is a 71 yo male with a PMH of recent thrombembolic CVA , - Patient Problems (1) A-fib (2) DM2 (diabetes mellitus, type 2) Comment: : A1c <6 : correctional insulin : consistent carb diet (3) HLD (hyperlipidemia) Comment: : goal <=70 : increase atorvastatin to 80mg daily : will need outpatient LDL & transaminase monitoring by PCP : low fat diet (4) HTN (hypertension) Comment: : allow permissive HTN up to 170 systolic
[2016-07-30 09:53] LABS: Hematocrit 30 % (42-52); Hemoglobin 10.1 g/dl (14.0-18.0); Mean Corpuscular HGB Conc 34 g/dl (31-36); Mean Corpuscular Hemoglobin 32 pg (27-31); Mean Corpuscular Volume 92 fL (80-94); Mean Platelet Volume 8 um3 (7.4-10.4); Red Cell Distribution Width 17 % (10.5-15); White Blood Count 19.8 10^3/ul (3.5-10.8)
[2016-07-30 10:08] LABS: BUN/Creatinine Ratio 22.6 (8-20); Calcium 7.9 mg/dL (8.6-10.3); EGFR African American 73.5 (>60); EGFR Non-African American 57.1 (>60); Potassium 3.3 mmol/L (3.5-5.0)
[2016-07-30 10:14] LABS: Troponin I 33.58 ng/mL (<0.04)
--- NOTE | 2016-07-30 10:20 | ECHO ---
Patient: CHIKA LOVELL [facility] Rec#: [id number] : 1945 Date: 07/30/2016 Age: 71y Height: 172.72 cm / 68.0 in Weight: 76.2 kg / 167.9 lbs Sex: M BSA: 1.9 Room#: [facility] Admit Date#: 07/29/2016 Type: Inpatient Referring: Tejinder Murdock Reading: Hermann Geronimo MD Systems Technologist: Kaila Martins [facility] Transthoracic Echocardiogram Indication: ASC BP: 93/56 HR: 81 Rhythm: NSR Findings History: Current pneumonia,recent CVA,HLD,HTN,CAD with PCI 2008,dementia. Technical Comments: The study quality is good. Completed at 0833. Left Ventricle: The left ventricular chamber size is normal. Mild concentric left ventricular hypertrophy is observed. There is moderately decreased left ventricular systolic function. The estimated ejection fraction is 35-40%. In parasternal short axis views and apical 4 chamber it appears closer to 40 %. The patient was unable to perform a Valsalva maneuver. The basal inferolateral, mid anterior, apical septal, apical anterior, apical lateral, and apical inferior wall segments are hypokinetic (score 2). Overall wallmotion score index is 1.38 Left Atrium: The left atrial chamber size is normal. Right Ventricle: The right ventricular cavity size is normal. The right ventricular global systolic function is normal. Right Atrium: The right atrial cavity size is normal. Aortic Valve: The aortic valve is trileaflet. The aortic valve leaflets are moderately thickened. Systolic excursion of the aortic valve cusps is reduced. There is mild aortic regurgitation. There is moderate to severe aortic stenosis.As calculated by continuity equation. The mean gradient of the aortic valve is 23.37 mmHg. Highest aortic valve velocity was acquired with Pedoff in apical position. Mitral Valve: There is mitral annular calcification. The mitral valve leaflets are mildly thickened. There is mild to moderate mitral regurgitation. There is borderline mitral stenosis. Tricuspid Valve: The tricuspid valve leaflets are normal. There is no evidence of tricuspid valve regurgitation. There is no tricuspid stenosis. Pulmonic Valve: The pulmonic valve appears normal. There is a trace pulmonic regurgitation. There is no pulmonic stenosis. Pericardium: A pericardial fat pad is visualized. Aorta: There is no dilatation of the ascending aorta. There is no dilatation of the aortic arch. There is no dilation of the aortic root. Pulmonary Artery: The main pulmonary artery is not well visualized. Venous: The venous system is not well visualized. Conclusions Mild concentric left ventricular hypertrophy is observed. There is moderately decreased left ventricular systolic function. The estimated ejection fraction is 35-40%. In parasternal short axis views and apical 4 chamber it appears closer to 40 %. There is mild aortic regurgitation. There is moderate to severe aortic stenosis as calculated by continuity equation. There is mild to moderate mitral regurgitation. There is borderline mitral stenosis. No reports of prior studies are offered for comparison. Measurements Name Value Normal Range RVIDd (AP) 2D 2 cm (0.9 - 2.6) RVDdMajor (2D) 3.1 cm (2.2 - 4.4) RAd ISD 4CH 4.2 cm (3.4 - 4.9) RA (A4C)W 3.6 cm (2.9 - 4.6) IVSd (2D) 1.1 cm (0.6 - 1) LVPWd (2D) 1.3 cm (0.6 - 1) LVIDd (2D) 5.1 cm (3.6 - 5.4) LVIDs (2D) 3.9 cm - LV FS (2D) 24 % (25 - 45) Aortic Annulus 1.9 cm (1.4 - 2.6) Ao root diameter (2D) 3.2 cm (2.1 - 3.5) Ascending Ao 2.8 cm (2.1 - 3.4) Aortic arch 2.2 cm (1.8 - 3.4) Descending Ao 0.5 cm - LA dimension (AP) 2D 3.8 cm (2.3 - 3.8) LAd ISD 4CH 5 cm (2.9 - 5.3) LA ISD 4CH W 4.3 cm (2.5 - 4.5) Name Value Normal Range LA ESV SP 4CH (A/L) 57 ml - LA ESV SP 2CH (A/L) 50 ml - LA ESV BP (A/L) 57 ml - LA ESV BP (A/L) index 29.93 ml/m2 - LA ESV SP 4CH (MOD) 53 ml - LA ESV SP 2CH (MOD) 47 ml - Name Value Normal Range MV E-wave Vmax 1.6 m/sec - MV deceleration time 198 msec - MV A-wave Vmax 1.1 m/sec - MV E:A ratio 1.48 ratio - LV septal e' Vmax 0.05 m/sec - LV lateral e' Vmax 0.07 m/sec - LV E:e' septal ratio 32 ratio - LV E:e' lateral ratio 22.86 ratio - Name Value Normal Range AV Vmax 3.1 m/sec - AV VTI 70.5 cm - AV peak gradient 39.47 mmHg - AV mean gradient 23.37 mmHg - LVOT diameter 2.2 cm - LVOT Vmax 0.8 m/sec - LVOT VTI 18.1 cm - LVOT peak gradient 2.88 mmHg - LVOT mean gradient 1.61 mmHg - SV LVOT 54 ml - ANDRES (continuity Vmax) 1 cm2 - ANDRES (continuity VTI) 0.9 cm2 - AR PHT 384 msec - AR peak gradient 30.89 mmHg - Name Value Normal Range MV Vmax 1.6 m/sec - MV VTI 30.9 cm - MV peak gradient 9.39 mmHg - MV mean gradient 3.01 mmHg - MV PHT 56 msec - MVA (PHT) 3.9 cm2 - MVA (continuity VTI) 1.7 cm2 - Name Value Normal Range PV Vmax 0.9 m/sec - PV peak gradient 3.53 mmHg - Wallmotion BAS Normal BA Normal BAL Normal STEFFANY Hypokinetic BI Normal BIS Normal MAS Normal MA Hypokinetic MAL Normal MIL Normal MD Normal MIS Normal Hypokinetic AA Hypokinetic AL Hypokinetic AI Hypokinetic APEX Hypokinetic
--- NOTE | 2016-07-30 11:10 | PN ---
Subjective Date of Service: 07/30/16 Interval History: . Per patient he has had "dark stools" for 2 weeks. He also reports cough, sore throat, congestion and losing his voice over the past 3 days stating "I thought I came down with a cold". He was having nausea and vomiting as well as abdominal pain for the last 2-3 days but that has seemed to resolve besides reporting some LLQ abdominal pain with palpation. No blood or coffee ground emesis noted. reports Dark sticky stools. Denies dizziness. Reports fatigue He currently reports no CP but does states he had CP "awhile ago". No SOB. Productive cough. No fevers or chills. Would like some water and feels hungry. Last BM was last night Objective Active Medications: Acetaminophen (Tylenol Tab*) 975 mg PO Q12H PRN PRN Reason: FEVER/PAIN Albuterol (Ventolin 2.5 Mg/3 Ml Neb.Isabel*) 2.5 mg INH Q8H PRN PRN Reason: SHORTNESS OF BREATH Atorvastatin Calcium (Lipitor*) 40 mg PO 1700 [facility] Citalopram Hydrobromide (Celexa Tab*) 20 mg PO DAILY [facility] Last Admin: 07/30/16 09:14 Dose: 20 mg Fentanyl Citrate (Fentanyl*) 25 mcg IV SLOW PU Q1H PRN PRN Reason: PAIN Levofloxacin/Dextrose (Levaquin 500 Mg Ivpremix(*)) 500 mg in 100 mls @ 100 mls /hr IVPB Q24H [facility] Pantoprazole Sodium 80 mg/ (Sodium Chloride) 250 mls @ 25 mls/hr IVPB Q10H [facility] Last Admin: 07/30/16 06:28 Dose: 25 mls/hr Metoprolol Tartrate (Lopressor Tab*) 12.5 mg PO DAILY WITH MEAL [facility] Last Admin: 07/30/16 09:14 Dose: 12.5 mg Vital Signs 07/30/16 07/30/16 07/30/16 06:30 07:00 07:56 Temperature 98.6 F 98.7 F Pulse Rate 85 Respiratory 14 17 18 Rate Blood Pressure 89/66 (mmHg) O2 Sat by Pulse 100 Oximetry 07/30/16 07/30/16 07/30/16 08:00 09:00 10:00 Temperature 98.4 F 98.4 F 97.8 F Pulse Rate 84 89 84 Respiratory 20 21 25 Rate Blood Pressure 101/60 99/59 92/58 (mmHg) O2 Sat by Pulse 100 100 98 Oximetry 07/30/16 11:00 Temperature 98.4 F Pulse Rate 78 Respiratory 18 Rate Blood Pressure (mmHg) O2 Sat by Pulse 97 Oximetry Oxygen Devices in Use Now: Nasal Cannula - 2LNC Appearance: 71 yo male laying in bed in NAD. A+Ox3 Eyes: No Scleral Icterus, PERRLA Ears/Nose/Mouth/Throat: NL Teeth, Lips, Gums, Mucous Membranes Moist Neck: NL Appearance and Movements; NL JVP Respiratory: Symmetrical Chest Expansion and Respiratory Effort, - - rhonchi throughout - no accessory muscle use Cardiovascular: NL Sounds; No Murmurs; No JVD, RRR, No Edema Abdominal: - - NL BS x4. LLQ tenderness, no gaurding. soft, non-distended Extremities: No Edema, No Clubbing, Cyanosis Skin: No Rash or Ulcers, No Nodules or Sclerosis Neurological: Alert and Oriented x 3, - - left sided weakness noted. can move left upper/lower extremities but strength is 3/5. right extremities full ROM with 5/5 strength Lines/Tubes/Other Access: Clean, Dry and Intact Peripheral IV Nutrition: Taking PO's - clears Result Diagrams: 07/30/16 15:15 07/30/16 09:45 Additional Lab and Data: Lab Results 07/29/16 07/29/16 07/29/16 Range/Units 18:15 18:15 18:15 WBC 15.9 H (3.5-10.8) 10^3/ul RBC 2.55 L (4.0-5.4) 10^6/ul Hgb 8.0 L (14.0-18.0) g/dl Hct 24 L (42-52) % MCV 96 H (80-94) fL MCH 31 (27-31) pg MCHC 33 (31-36) g/dl RDW 19 H (10.5-15) % Plt Count 284 (150-450) 10^3/ul MPV 8 (7.4-10.4) um3 Neut % (Auto) 81.4 (38-83) % Lymph % (Auto) 10.4 L (25-47) % [place] % (Auto) 7.2 (1-9) % Eos % (Auto) 0.1 (0-6) % Baso % (Auto) 0.9 (0-2) % Absolute Neuts (auto) 12.9 H (1.5-7.7) 10^3/ul Absolute Lymphs (auto) 1.7 (1.0-4.8) 10^3/ul Absolute Monos (auto) 1.1 H (0-0.8) 10^3/ul Absolute Eos (auto) 0 (0-0.6) 10^3/ul Absolute Basos (auto) 0.1 (0-0.2) 10^3/ul Absolute Nucleated RBC 0.01 10^3/ul Nucleated RBC % 0.1 INR (Anticoag Therapy) (0.89-1.11) APTT (26.0-36.3) seconds Sodium 138 (133-145) mmol/L Potassium 4.1 (3.5-5.0) mmol/L Chloride 100 L (101-111) mmol/L Carbon Dioxide 30 (22-32) mmol/L Anion Gap 8 (2-11) mmol/L BUN 32 H (6-24) mg/dL Creatinine 1.16 (0.67-1.17) mg/dL Est GFR ( Amer) 79.4 (>60) Est GFR (Non-Af Amer) 61.7 (>60) BUN/Creatinine Ratio 27.6 H (8-20) Glucose 136 H (70-100) mg/dL Lactic Acid 2.1 H* (0.5-2.0) mmol/L Calcium 9.1 (8.6-10.3) mg/dL Total Bilirubin 0.70 (0.2-1.0) mg/dL AST 31 (13-39) U/L ALT 18 (7-52) U/L Alkaline Phosphatase 69 (34-104) U/L Total Creatine Kinase (10-223) U/L CK-MB (CK-2) (0.6-6.3) ng/mL Troponin I 3.07 H* (<0.04) ng/mL C-Reactive Protein 18.52 H (< 5.00) mg/L Total Protein 6.7 (6.4-8.9) g/dL Albumin 3.7 (3.2-5.2) g/dL Globulin 3.0 (2-4) g/dL Albumin/Globulin Ratio 1.2 (1-3) Lipase 51 (11.0-82.0) U/L Urine Color Urine Appearance Urine pH (5-9) Ur Specific [place] (1.010-1.030) Urine Protein (Negative) Urine Ketones (Negative) Urine Blood (Negative) Urine Nitrate (Negative) Urine Bilirubin (Negative) Urine Urobilinogen (Negative) Ur Leukocyte Esterase (Negative) Urine WBC (Auto) (Absent) Urine RBC (Auto) (Absent) Ur Squamous Epith Cells (Absent) Urine Bacteria (Absent) Urine Glucose (Negative) Blood Type Antibody Screen Crossmatch 07/29/16 07/29/16 07/29/16 Range/Units 18:15 18:15 19:10 WBC (3.5-10.8) 10^3/ul RBC (4.0-5.4) 10^6/ul Hgb (14.0-18.0) g/dl Hct (42-52) % MCV (80-94) fL MCH (27-31) pg MCHC (31-36) g/dl RDW (10.5-15) % Plt Count (150-450) 10^3/ul MPV (7.4-10.4) um3 Neut % (Auto) (38-83) % Lymph % (Auto) (25-47) % [place] % (Auto) (1-9) % Eos % (Auto) (0-6) % Baso % (Auto) (0-2) % Absolute Neuts (auto) (1.5-7.7) 10^3/ul Absolute Lymphs (auto) (1.0-4.8) 10^3/ul Absolute Monos (auto) (0-0.8) 10^3/ul Absolute Eos (auto) (0-0.6) 10^3/ul Absolute Basos (auto) (0-0.2) 10^3/ul Absolute Nucleated RBC 10^3/ul Nucleated RBC % INR (Anticoag Therapy) 1.73 H (0.89-1.11) APTT 37.5 H (26.0-36.3) seconds Sodium (133-145) mmol/L Potassium (3.5-5.0) mmol/L Chloride (101-111) mmol/L Carbon Dioxide (22-32) mmol/L Anion Gap (2-11) mmol/L BUN (6-24) mg/dL Creatinine (0.67-1.17) mg/dL Est GFR ( Amer) (>60) Est GFR (Non-Af Amer) (>60) BUN/Creatinine Ratio (8-20) Glucose (70-100) mg/dL Lactic Acid (0.5-2.0) mmol/L Calcium (8.6-10.3) mg/dL Total Bilirubin (0.2-1.0) mg/dL AST (13-39) U/L ALT (7-52) U/L Alkaline Phosphatase (34-104) U/L Total Creatine Kinase (10-223) U/L CK-MB (CK-2) (0.6-6.3) ng/mL Troponin I (<0.04) ng/mL C-Reactive Protein (< 5.00) mg/L Total Protein (6.4-8.9) g/dL Albumin (3.2-5.2) g/dL Globulin (2-4) g/dL Albumin/Globulin Ratio (1-3) Lipase (11.0-82.0) U/L Urine Color Yellow Urine Appearance Cloudy Urine pH 5.0 (5-9) Ur Specific [place] 1.012 (1.010-1.030) Urine Protein Negative (Negative) Urine Ketones Negative (Negative) Urine Blood Negative (Negative) Urine Nitrate Negative (Negative) Urine Bilirubin Negative (Negative) Urine Urobilinogen Negative (Negative) Ur Leukocyte Esterase 3+ H (Negative) Urine WBC (Auto) 3+(>20/hpf) H (Absent) Urine RBC (Auto) 3+(>10/hpf) H (Absent) Ur Squamous Epith Cells Present H (Absent) Urine Bacteria 1+ H (Absent) Urine Glucose Negative (Negative) Blood Type O Negative Antibody Screen Negative Crossmatch See Detail 07/29/16 Range/Units 20:15 WBC (3.5-10.8) 10^3/ul RBC (4.0-5.4) 10^6/ul Hgb (14.0-18.0) g/dl Hct (42-52) % MCV (80-94) fL MCH (27-31) pg MCHC (31-36) g/dl RDW (10.5-15) % Plt Count (150-450) 10^3/ul MPV (7.4-10.4) um3 Neut % (Auto) (38-83) % Lymph % (Auto) (25-47) % [place] % (Auto) (1-9) % Eos % (Auto) (0-6) % Baso % (Auto) (0-2) % Absolute Neuts (auto) (1.5-7.7) 10^3/ul Absolute Lymphs (auto) (1.0-4.8) 10^3/ul Absolute Monos (auto) (0-0.8) 10^3/ul Absolute Eos (auto) (0-0.6) 10^3/ul Absolute Basos (auto) (0-0.2) 10^3/ul Absolute Nucleated RBC 10^3/ul Nucleated RBC % INR (Anticoag Therapy) (0.89-1.11) APTT (26.0-36.3) seconds Sodium (133-145) mmol/L Potassium (3.5-5.0) mmol/L Chloride (101-111) mmol/L Carbon Dioxide (22-32) mmol/L Anion Gap (2-11) mmol/L BUN (6-24) mg/dL Creatinine (0.67-1.17) mg/dL Est GFR ( Amer) (>60) Est GFR (Non-Af Amer) (>60) BUN/Creatinine Ratio (8-20) Glucose (70-100) mg/dL Lactic Acid (0.5-2.0) mmol/L Calcium (8.6-10.3) mg/dL Total Bilirubin (0.2-1.0) mg/dL AST (13-39) U/L ALT (7-52) U/L Alkaline Phosphatase (34-104) U/L Total Creatine Kinase 148 (10-223) U/L CK-MB (CK-2) 43.8 H (0.6-6.3) ng/mL Troponin I 1.65 H* (<0.04) ng/mL C-Reactive Protein (< 5.00) mg/L Total Protein (6.4-8.9) g/dL Albumin (3.2-5.2) g/dL Globulin (2-4) g/dL Albumin/Globulin Ratio (1-3) Lipase (11.0-82.0) U/L Urine Color Urine Appearance Urine pH (5-9) Ur Specific [place] (1.010-1.030) Urine Protein (Negative) Urine Ketones (Negative) Urine Blood (Negative) Urine Nitrate (Negative) Urine Bilirubin (Negative) Urine Urobilinogen (Negative) Ur Leukocyte Esterase (Negative) Urine WBC (Auto) (Absent) Urine RBC (Auto) (Absent) Ur Squamous Epith Cells (Absent) Urine Bacteria (Absent) Urine Glucose (Negative) Blood Type Antibody Screen Crossmatch Microbiology and Other Data: Microbiology 07/29/16 22:05 Nasal Screen MRSA (PCR)(ASHLEY) - Final Nasal Mrsa Negative Assess/Plan/Problems-Billing Assessment: Mr. Garza is a 71 yo male with a PMH of recent thrombembolic CVA , history of known obstructive CAD who presents to the ED with lethargy, nausea and vomiting found to have a GI bleed with black tarry stool, acute HI and pneumonia in the setting of xarelto and aspirin. - Patient Problems (1) GI bleed Comment: - Last BM evening 07/29. Total of 2 units PRBCs. on admission HH 7.4/23 up to this am; continue trending HH. Goal to keep HH > 10/30 in the setting of NSTEMI - Gi consult pending - ok to give clears. - continue protonix gtt (2) NSTEMI (non-ST elevated myocardial infarction) Comment: - No Chest Pain - Known obstructive CAD suspect demand related acute HI in the setting of GI bleed - Trop 33 - continue to trend troponins - appreciate cardiology consult. Goal HH 10/30. continue BB, statin. - Awaiting echo (3) Pneumonia Comment: - CT showing left > right basilar pneumonia. On 3L NC with O2 sats 98%. - continue levaquin. (4) Recent cerebrovascular accident (CVA) Comment: MRI brain small subacute nonhemorrhagic infarct of the left lateral medulla Thought to be embolic CVA started on Xarelto. Has residual Left hemiparesis. Hold ASA and xarelto. (5) A-fib Comment: - Continue BB - Per cardiology if pt was to go back on anticoagualtion (with GI clearance) recommends Eliquis 5 mg BID. (6) DM2 (diabetes mellitus, type 2) Comment: : A1c <6 - diet controlled diabetes but noted to have high FSBGs - FSBG Q6hr with lispro SS (7) HTN (hypertension) Comment: - continue Metoprolol (8) DNR (do not resuscitate) Status and Disposition: Inpatient with GI Bleed, Pneumonia and NSTEMI.
--- NOTE | 2016-07-30 11:26 | CONSULT ---
Subjective Date of Service: 07/30/16 Interval History: Admission Date: 07/29/16 Provider: Hospitalist service Date of consult 07/30/2016 CHIEF COMPLAINT: Lethargy, nausea, vomiting, chest pain Reason for consult: Acute [place] HISTORY OF PRESENT ILLNESS: Jarod Garza is a 71-year-old man with a known history of unrevascularized obstructive CAD, recent stroke in the setting of atrial fibrillation discharged from the hospital 07/10/16 to [facility] where he has been participating in rehab there. Started with vomiting and abdomen pain last several days. The day of admission was noted to have confusion. He also had chest pain. He was found with anemia and a GI bleed. He was transfused pRBC and developed CHF. a TTE showed an LVEF of 35-40% with segmental WMA and moderate to severe low gradient . He has had NSVT on laboratory monitor. He is asymptomatic at this time. PAST MEDICAL HISTORY: 1. Recent thromboembolic CVA with left-sided weakness including facial droop and slurred speech. 2. Hyperlipidemia. 3. Atrial fibrillation, anticoagulated with Xarelto. 4. Hypertension. 5. Diet-controlled diabetes. 6. History of coronary artery disease, status post PCI - last cardiac catheterization from 2008 showed severe stenosis in the circumflex distally, which was not amenable to stenting at that time. 7. Dementia. SOCIAL HISTORY: The patient is currently at [facility] for rehab after recent CVA. His sister is quite involved in his care. Her name is Ventura Posey and acts as the healthcare proxy and she is at bedside Family hx non-contributory REVIEW OF SYSTEMS: As noted above in the HPI. The patient is a limited historian due to speech difficulty and maintaining concentration. He was able to tell me he had no current chest pain. Medications Active Medications: Acetaminophen (Tylenol Tab*) 975 mg PO Q12H PRN PRN Reason: FEVER/PAIN Albuterol (Ventolin 2.5 Mg/3 Ml Neb.Alta*) 2.5 mg INH Q8H PRN PRN Reason: SHORTNESS OF BREATH Atorvastatin Calcium (Lipitor*) 40 mg PO 1700 [facility] Citalopram Hydrobromide (Celexa Tab*) 20 mg PO DAILY [facility] Last Admin: 07/30/16 09:14 Dose: 20 mg Fentanyl Citrate (Fentanyl*) 25 mcg IV SLOW PU Q1H PRN PRN Reason: PAIN Levofloxacin/Dextrose (Levaquin 500 Mg Ivpremix(*)) 500 mg in 100 mls @ 100 mls /hr IVPB Q24H [facility] Pantoprazole Sodium 80 mg/ (Sodium Chloride) 250 mls @ 25 mls/hr IVPB Q10H [facility] Last Admin: 07/30/16 06:28 Dose: 25 mls/hr Metoprolol Tartrate (Lopressor Tab*) 12.5 mg PO DAILY WITH MEAL [facility] Last Admin: 07/30/16 09:14 Dose: 12.5 mg Home Medications: Aspirin Low Dose CHEW TAB* [Aspirin Low Dose TAB*] 81 mg PO DAILY 07/07/16 [ History Confirmed 07/29/16] Acetaminophen [Acetaminophen Extra Stren] 1,000 mg PO BID PRN 07/29/16 [History Confirmed 07/29/16] Albuterol 2.5MG/3ML (0.083%)* [Ventolin 2.5 MG/3 ML NEB.ALTA*] 2.5 mg INH TID PRN 07/29/16 [History Confirmed 07/29/16] Atorvastatin* [Lipitor 80 MG*] 80 mg PO BEDTIME 07/29/16 [History Confirmed ] Cholecalciferol TAB* [Vitamin D TAB*] 2,000 units PO DAILY 07/29/16 [History Confirmed 07/29/16] Escitalopram (NF) [Lexapro (NF)] 10 mg PO QAM 07/29/16 [History Confirmed ] Lidocaine 1%* [Xylocaine 1%*] 2.1 ml IM QPM 07/29/16 [History Confirmed 07/29/16 ] Metoprolol Tartrate TAB* [Lopressor TAB*] 12.5 mg PO DAILY 07/29/16 [History Confirmed 07/29/16] Rivaroxaban TAB(*) [Xarelto 15 mg(*)] 15 mg PO BID 07/29/16 [History Confirmed 07/29/16] Tamsulosin CAP* [Flomax CAP*] 0.4 mg PO DAILY 07/29/16 [History Confirmed ] guaiFENesin ER TAB [Mucinex*] 600 mg PO BID PRN 07/29/16 [History Confirmed ] Review of Systems - Measurements Intake and Output: Intake and Output Last 24 Hours 07/28/16 07/29/16 07/30/16 07/31/16 06:59 06:59 06:59 06:59 Intake Total 633 350 Output Total 2450 Balance -1817 350 Weight 162 lb 11.218 oz Intake: IV Fluids 22 NS (0.9%) 22 Medicated IV 187 GEN - Pantoprazole/ 187 Protonix Packed Cells 424 350 Output: [place] 2450 Other: Estimated Void Medium # Bowel Movements 2 Estimated Stool Amount Medium # Voids 3 Objective Vital Signs: Temp Pulse Resp BP Pulse Ox 98.4 F 78 18 92/58 97 07/30/16 11:00 07/30/16 11:00 07/30/16 11:00 07/30/16 10:00 07/30/16 11:00 Appearance: frail, pleasant, unable to sit up with own power Ears/Nose/Mouth/Throat: Clear Oropharnyx, Mucous Membranes Moist Neck: Trachea Midline, - - could not do proper JVP assessment Respiratory: Symmetrical Chest Expansion and Respiratory Effort, - - unable to take full deep breath to evaluate for rales Cardiovascular: RRR, - - no signifcant edema, 2/6 murmur Abdominal: NL Sounds; No Tenderness; No Distention Extremities: No Clubbing, Cyanosis Skin: No Rash or Ulcers Neurological: Alert and Oriented x 3 Laboratory Results: 07/30/16 09:45 07/30/16 09:45 INR (Anticoag Therapy) 1.73 (0.89-1.11) H 07/29/16 18:15 APTT 37.5 seconds (26.0-36.3) H 07/29/16 18:15 Total Bilirubin 0.70 mg/dL (0.2-1.0) 07/29/16 18:15 AST 31 U/L (13-39) 07/29/16 18:15 ALT 18 U/L (7-52) 07/29/16 18:15 Alkaline Phosphatase 69 U/L (34-104) 07/29/16 18:15 CK-MB (CK-2) 43.8 ng/mL (0.6-6.3) H 07/29/16 20:15 Total Protein 6.7 g/dL (6.4-8.9) 07/29/16 18:15 Albumin 3.7 g/dL (3.2-5.2) 07/29/16 18:15 Globulin 3.0 g/dL (2-4) 07/29/16 18:15 Albumin/Globulin Ratio 1.2 (1-3) 07/29/16 18:15 07/29/16 07/30/16 07/30/16 23:41 03:33 09:45 Troponin I 2.36 H* 12.73 H* 33.58 H* Diagnostic Imaging: Coronary angiogram 01/2009: (history of multiple Lcx stenting): No LM or LAD stenosis, RCA small non-dominant vessel without disease. Dominant Lcx with extensive stenting and severe distal disease medically treated. EKG Data: ekg 07/07/2016: Rapid afib ekg 07/07/2016: NSR, incmplete RBBB with nonspecific st changes EKG 07/30/2016: NSR, RBBB, aVR mild elevation with subtle diffuse ST depression more suggestive of global ischemia, less pronounced than 07/29 admission EKG Assessment/Plan 71 year old man with a history of known obstructive CAD/PCI, recent AFib and CVA was at rehab facility anti-coagulated with xarelto 15 mg PO BID and aspirin admitted with a GI bleed and acute AZ with LVEF 35-40%, NSVT, moderate to severe low gradient . I think AZ is either from type 2 supply/demand AZ from anemia, Lcx stent thrombosis related to acute bleeding episode and/or global ischemia from anemia and aortic stenosis.. Chest pain now resolved with pRBC transfusion has required furosemide. - Keep K > 4 and Mg > 2 - Increase metoprolol to 25 mg PO TID (ordered) and change to toprol once stable - Continue intensive dose statin - Would hold off on AceI/ARB at this time until more stable can consider prior to discharge pending clinical course - Transfuse to keep hemoglobin > 10, give diuretics PRN - Aspirin and AC understandably on hold. If ok from GI standpoint if could be restarted on anti-coagulation would d/c aspirin and use eliquis 5 mg PO BID alone (without anti-platelet) as this has lowest risk of GI bleeding. - I do not think patient would benefit from coronary revascularization at this time as committing him to prolonged dual anti-platelet therapy could cause life threatening stent thrombosis if this would need to be held for recurrent GI bleeding. Additionally he would be a poor CABG candidate at this time due to co -morbidities including recent stroke and GI hemorrhage - Will follow Thank you for allowing me to participate in the cardiovascular care of this patient. Please do not hesitate to contact me with questions or concerns.
[2016-07-30] MEDS ORDERED: Dextrose 50% Syringe 50 ML* 25 GM/50 ML SYRINGE IV PUSH PRN (12:07)
--- NOTE | 2016-07-30 12:23 | RAD ---
INDICATION: Hypoxia COMPARISON: July 29, 2016 TECHNIQUE: An AP portable view obtained at 0925 hours is submitted. FINDINGS: Bones/Soft Tissues: There are no acute bony findings. Cardiomediastinal: The heart is normal in size. Central pulmonary vessels and interstitium are prominent compatible with interstitial congestion with mild worsening. Lungs: There are no focal consolidative changes. Developing bibasilar infiltrates are not excluded. Pleura: There are no pleural effusions. Other: None IMPRESSION: MILD INTERSTITIAL CONGESTION. POSSIBLE DEVELOPING BIBASAL INFILTRATES.
[2016-07-30] MEDS: KCL 20 MEQ/100 ML IVPREMIX* 20 MEQ/100 ML BAG IV SCH ×2 (12:51→14:16)
[2016-07-30] MEDS: Insulin LISPRO* 1 UNITS UNIT SUBCUT SCH ×2 (13:11→17:32)
[2016-07-30 15:44] LABS: Hematocrit 31 % (42-52); Hemoglobin 10.1 g/dl (14.0-18.0)
[2016-07-30 15:45] LABS: Comments Flag Yes
[2016-07-30] MEDS: Atorvastatin* 40 MG TAB PO SCH (17:23)
--- NOTE | 2016-07-30 18:33 | CONS ---
CONSULTATION REPORT: DATE OF CONSULT: 07/30/16 REASON FOR CONSULT: GI bleed and anemia. NARRATIVE: Mr. Carter is a 71-year-old gentleman who was hospitalized in June of 2016 after an acute embolic stroke. He was discharged on Xarelto, as he was also found to be in atrial fibrillation. In the few days leading up to this admission, the patient has been experiencing a sense of nausea and vomiting. He is also noted to have very dark black like stools and feeling weak. For this reason, he presented to the emergency room and he was noted to have a hemoglobin of 8. He was transiently hypotensive but with fluids that corrected. His Xarelto was held and he was given 2 units of packed red blood cells with an improvement in his hemoglobin. By this afternoon, he has had no further bowel movements. Again, his health history begins last month when he presented with an acute embolic CVA from atrial fibrillation. He had left- sided weakness and slurred speech. He was also having dysphagia from his stroke and apparently had a swallow evaluation, which allowed for nectar thick liquids. [facility] and has been on that nectar thick consistent diet, but unfortunately he has had a poor appetite. There are also some concerns of aspiration and on this admission, the patient did have respiratory symptoms and imaging suggestive of pneumonia. PAST MEDICAL HISTORY: Again includes CVA, atrial fibrillation, hypertension, hyperlipidemia, diabetes, he also has a history of coronary artery disease and mild dementia. HOME MEDICATIONS: 1. Ventolin. 2. Baby aspirin. 3. Atorvastatin. 4. Vitamin D. 5. Lexapro. 6. Metoprolol. 7. Xarelto. 8. Flomax. REVIEW OF SYSTEMS: There is no history of bright red blood per rectum. He does describe a mild discomfort in the epigastrium. He has had nausea and vomiting, but no hematemesis. He denies any odynophagia. PHYSICAL EXAM: He is a frail elderly gentleman in the ICU, lying in bed, conversant with a soft whispering voice, but in no acute distress. Temperature is 98.4, blood pressure is 87/53, heart rate is 81 and irregular. Lungs reveal crackles and rhonchi anteriorly. Cardiac exam reveals a distant heart sounds and an irregular rhythm. Abdomen is soft without tenderness or distention. Bowel sounds normoactive and there is no organomegaly. LABORATORY DATA: Include a white blood cell count of 19.8, hemoglobin of 10.1 which is up from 8 yesterday after 2 units of packed red blood cells. INR 1.73. BUN of 28 and creatinine of 1.24. Troponin of 36.41. IMPRESSION: Complicated 71-year-old gentleman with a history of coronary disease, recently admitted after an embolic cerebrovascular accident and atrial fibrillation, now presenting with weakness, upper digestive symptoms, and evidence of gastrointestinal bleeding. I should say his stool did come back guaiac positive. His bleeding could certainly be from anticoagulant such as Xarelto. He does seem to have ceased bleeding in the last 24 hours, he has had no bowel movements and his hemoglobin appropriately went up with transfusion. Significant other events have occurred including the possibility of an aspiration pneumonia and recurrent aspiration after his stroke. He also has an elevated troponin suggestive of a non-ST elevation myocardial infarction. At this point, his bleeding seems to subside and I do not advocate endoscopic evaluation at this point due to his other comorbid active issues such as pneumonia and heart disease. If he were to develop recurrence of bleeding, we certainly would intervene with an endoscopy. To me, the larger digestive issue is the safety of his swallowing and the ability for his nutrition to be maintained. He certainly has oropharyngeal dysphagia from his stroke and it is unclear whether that will recover and whether he safely can swallow. I do believe when he is more stable, perhaps a video swallow evaluation will be helpful. I also went ahead and spoke to his sister, Teresa, over the phone to explain these issues and discussed the possibility that we would recommend a PEG tube for safe nutrition. Certainly, a family meeting would be in order if that is considered. At this point, I will continue with the speech therapist's recommendation and pursue a video swallow evaluation next week. I will certainly follow along while this patient is hospitalized. [id number]/[facility] #: [id number] CARMEN
[2016-07-30] MEDS: Levofloxacin 500 MG IVPREMIX(* 500 MG/100 ML BAG IVPB SCH (19:40)
[2016-07-30] MEDS: Metoprolol Tartrate TAB* 25 MG PO SCH (19:50)
[2016-07-30 22:32] LABS: Hematocrit 30 % (42-52)
[2016-07-31] MEDS: Insulin LISPRO* 1 UNITS UNIT SUBCUT SCH ×4 (00:15→19:05)
[2016-07-31 02:57] LABS: Hematocrit 30 % (42-52); Hemoglobin 9.8 g/dl (14.0-18.0)
[2016-07-31 02:58] LABS: Comments Flag Yes
[2016-07-31] MEDS: Metoprolol Tartrate TAB* 25 MG PO SCH ×3 (03:54→19:50)
[2016-07-31] MEDS: Pantoprazole IV* 80 MG in NS 0.9% 250 ML* 250 ML IVPB SCH (03:54)
[2016-07-31 06:41] LABS: Hematocrit 31 % (42-52); Hemoglobin 10.2 g/dl (14.0-18.0); Mean Corpuscular HGB Conc 33 g/dl (31-36); Mean Corpuscular Hemoglobin 31 pg (27-31); Mean Corpuscular Volume 93 fL (80-94); Mean Platelet Volume 8 um3 (7.4-10.4); Red Blood Count 3.29 10^6/ul (4.0-5.4); Red Cell Distribution Width 18 % (10.5-15); White Blood Count 17.8 10^3/ul (3.5-10.8)
[2016-07-31 06:45] LABS: Add Diff/Slide Review? Slide Review Added; Comments Flag Yes
[2016-07-31 06:53] LABS: BUN/Creatinine Ratio 28.1 (8-20); Calcium 8.1 mg/dL (8.6-10.3); Potassium 4.1 mmol/L (3.5-5.0)
[2016-07-31] MEDS: Citalopram TAB* 20 MG PO SCH (08:34)
--- NOTE | 2016-07-31 08:36 | PN ---
Subjective Date of Service: 07/31/16 Interval History: f/u TN Feels and looks remarkably better today [id number] No chest pain or dyspnea at rest Tele: SR with intermittent NSVT Medications Active Medications: Acetaminophen (Tylenol Tab*) 975 mg PO Q12H PRN PRN Reason: FEVER/PAIN Albuterol (Ventolin 2.5 Mg/3 Ml Neb.Isabel*) 2.5 mg INH Q8H PRN PRN Reason: SHORTNESS OF BREATH Atorvastatin Calcium (Lipitor*) 40 mg PO 1700 [facility] Last Admin: 07/30/16 17:23 Dose: 40 mg Citalopram Hydrobromide (Celexa Tab*) 20 mg PO DAILY [facility] Last Admin: 07/30/16 09:14 Dose: 20 mg Dextrose (D50w Syringe 50 Ml*) 12.5 gm IV PUSH .FOR FS < 60 - SS PRN PRN Reason: FS < 60 Fentanyl Citrate (Fentanyl*) 25 mcg IV SLOW PU Q1H PRN PRN Reason: PAIN Levofloxacin/Dextrose (Levaquin 500 Mg Ivpremix(*)) 500 mg in 100 mls @ 100 mls /hr IVPB Q24H [facility] Last Admin: 07/30/16 19:40 Dose: 100 mls/hr Pantoprazole Sodium 80 mg/ (Sodium Chloride) 250 mls @ 25 mls/hr IVPB Q10H [facility] Last Admin: 07/31/16 03:54 Dose: 25 mls/hr Insulin Human Lispro (Humalog*) 0 units SUBCUT FS Q6 ICU LINDA PRN Reason: Protocol Last Admin: 07/31/16 06:39 Dose: 1 units Metoprolol Tartrate (Lopressor Tab*) 25 mg PO Q8H [facility] Last Admin: 07/31/16 03:54 Dose: 25 mg Objective Vital Signs: Temp Pulse Resp BP Pulse Ox 98.8 F 39 15 107/73 95 07/31/16 08:00 07/31/16 08:00 07/31/16 08:00 07/31/16 08:00 07/31/16 08:00 Oxygen Devices in Use Now: Nasal Cannula - 2LNC Appearance: nad, pleasant Ears/Nose/Mouth/Throat: Clear Oropharnyx, Mucous Membranes Moist Neck: Trachea Midline, - - could not do proper JVP assessment Respiratory: Symmetrical Chest Expansion and Respiratory Effort, - - crackles left base Cardiovascular: RRR, - - 2/6 murmur Abdominal: NL Sounds; No Tenderness; No Distention Extremities: No Clubbing, Cyanosis Skin: No Rash or Ulcers Neurological: Alert and Oriented x 3 Laboratory Results: 07/31/16 06:25 07/31/16 06:25 INR (Anticoag Therapy) 1.73 (0.89-1.11) H 07/29/16 18:15 APTT 37.5 seconds (26.0-36.3) H 07/29/16 18:15 Total Bilirubin 0.70 mg/dL (0.2-1.0) 07/29/16 18:15 AST 31 U/L (13-39) 07/29/16 18:15 ALT 18 U/L (7-52) 07/29/16 18:15 Alkaline Phosphatase 69 U/L (34-104) 07/29/16 18:15 CK-MB (CK-2) 43.8 ng/mL (0.6-6.3) H 07/29/16 20:15 Total Protein 6.7 g/dL (6.4-8.9) 07/29/16 18:15 Albumin 3.7 g/dL (3.2-5.2) 07/29/16 18:15 Globulin 3.0 g/dL (2-4) 07/29/16 18:15 Albumin/Globulin Ratio 1.2 (1-3) 07/29/16 18:15 07/29/16 07/30/16 07/30/16 23:41 03:33 09:45 Troponin I 2.36 H* 12.73 H* 33.58 H* 07/30/16 07/30/16 07/30/16 13:05 17:24 22:20 Troponin I 36.41 H* 36.57 H* 42.28 H* 07/31/16 02:36 Troponin I 30.58 H* Diagnostic Imaging: Coronary angiogram 01/2009: (history of multiple Lcx stenting): No LM or LAD stenosis, RCA small non-dominant vessel without disease. Dominant Lcx with extensive stenting and severe distal disease medically treated. EKG Data: ekg 07/07/2016: Rapid afib ekg 07/07/2016: NSR, incmplete RBBB with nonspecific st changes EKG 07/30/2016: NSR, RBBB, aVR mild elevation with subtle diffuse ST depression more suggestive of global ischemia, less pronounced than 07/29 admission EKG Assessment/Plan 71 year old man with a history of known obstructive CAD/PCI, recent AFib and CVA was at rehab facility anti-coagulated with xarelto 15 mg PO BID and aspirin admitted with a GI bleed and acute TN peak cTnI 42 with LVEF 35-40%, NSVT, moderate to severe low gradient . I think TN is either from type 2 supply/ demand TN from anemia, Lcx stent thrombosis related to acute bleeding episode and/or global ischemia from anemia and aortic stenosis.. Chest pain now resolved with pRBC transfusion has required furosemide. - Keep K > 4 and Mg > 2 - Continue metoprolol to 25 mg PO TIDand change to toprol once stable - Continue intensive dose statin - Would hold off on AceI/ARB at this time until more stable can consider prior to discharge pending clinical course - Transfuse to keep hemoglobin > 10, give diuretics PRN - Aspirin and AC understandably on hold. I think biggest short term risk from a cardiac perspective is recurrent CVA from paroxysmal AFib. If ok from GI standpoint to restart anti-coagulation would d/c aspirin and use eliquis 5 mg PO BID alone (without anti-platelet) as this anticoagulant has lowest risk of GI bleeding. - Will follow Thank you for allowing me to participate in the cardiovascular care of this patient. Please do not hesitate to contact me with questions or concerns.
[2016-07-31 09:40] LABS: Magnesium 2.1 mg/dL (1.9-2.7)
--- NOTE | 2016-07-31 10:38 | PN ---
Subjective Date of Service: 07/31/16 Interval History: patient is feeling "much, much better today". Patient is A+O x3. He was asking for food this morning and is feeling hungry. Spoke to him about continuing NPO status for upper endoscopy and he agrees with the plan stating "I think thats a good idea". He denies abdominal pain, no further BM. Denies CP or SOB. No dizziness. Reports occasional cough with sputum production but reports it is better today compared to yesterday. He is "scared to eat" because he has been choking on food and liquids prior to coming to the hospital. Overall he is feeling much better and stronger today Objective Active Medications: Acetaminophen (Tylenol Tab*) 975 mg PO Q12H PRN PRN Reason: FEVER/PAIN Albuterol (Ventolin 2.5 Mg/3 Ml Neb.Isabel*) 2.5 mg INH Q8H PRN PRN Reason: SHORTNESS OF BREATH Atorvastatin Calcium (Lipitor*) 40 mg PO 1700 [facility] Last Admin: 07/30/16 17:23 Dose: 40 mg Citalopram Hydrobromide (Celexa Tab*) 20 mg PO DAILY [facility]PL[facility] Last Admin: 07/31/16 08:34 Dose: 20 mg Dextrose (D50w Syringe 50 Ml*) 12.5 gm IV PUSH .FOR FS < 60 - SS PRN PRN Reason: FS < 60 Fentanyl Citrate (Fentanyl*) 25 mcg IV SLOW PU Q1H PRN PRN Reason: PAIN Levofloxacin/Dextrose (Levaquin 500 Mg Ivpremix(*)) 500 mg in 100 mls @ 100 mls /hr IVPB Q24H REPLACED BY [facility] Last Admin: 07/30/16 19:40 Dose: 100 mls/hr Pantoprazole Sodium 80 mg/ (Sodium Chloride) 250 mls @ 25 mls/hr IVPB Q10H REPLACED BY [facility] Last Admin: 07/31/16 03:54 Dose: 25 mls/hr Insulin Human Lispro (Humalog*) 0 units SUBCUT FS Q6 ICU [facility]DA PRN Reason: Protocol Last Admin: 07/31/16 06:39 Dose: 1 units Metoprolol Tartrate (Lopressor Tab*) 25 mg PO Q8H REPLACED BY [facility] Last Admin: 07/31/16 03:54 Dose: 25 mg Vital Signs 07/31/16 07/31/16 07/31/16 03:45 04:00 05:00 Temperature 98.8 F 98.9 F 98.6 F Pulse Rate 74 78 Respiratory 20 22 16 Rate Blood Pressure 101/58 109/59 (mmHg) O2 Sat by Pulse 91 91 Oximetry 07/31/16 07/31/16 07/31/16 06:00 06:41 07:00 Temperature 98.7 F 98.5 F Pulse Rate 71 80 Respiratory 20 24 21 Rate Blood Pressure 105/57 (mmHg) O2 Sat by Pulse 96 95 Oximetry 07/31/16 07/31/16 07/31/16 07:36 07:41 07:55 Temperature 98.9 F 98.9 F 98.5 F Pulse Rate 77 120 Respiratory 24 23 Rate Blood Pressure 100/66 (mmHg) O2 Sat by Pulse 97 99 Oximetry 07/31/16 07/31/16 07/31/16 08:00 09:00 10:00 Temperature 98.8 F 99.1 F Pulse Rate 39 78 71 Respiratory 15 12 19 Rate Blood Pressure 107/73 99/59 99/60 (mmHg) O2 Sat by Pulse 95 99 99 Oximetry Oxygen Devices in Use Now: Nasal Cannula - 2LNC Appearance: 71 yo elderly male sitting up in a chair in NAD A+Ox3 Eyes: No Scleral Icterus, PERRLA Ears/Nose/Mouth/Throat: NL Teeth, Lips, Gums, Clear Oropharnyx, Mucous Membranes Moist Neck: NL Appearance and Movements; NL JVP Respiratory: Symmetrical Chest Expansion and Respiratory Effort, - - mild scattered rhonchi, no accessory muscle use Cardiovascular: NL Sounds; No Murmurs; No JVD, RRR, No Edema Abdominal: NL Sounds; No Tenderness; No Distention Lymphatic: No Cervical Adenopathy Extremities: No Edema, No Clubbing, Cyanosis, - - left side noted weakness strength 3/5 upper ext, 4/6 LE - right extremities strength 5/5 throughout Skin: No Rash or Ulcers, No Nodules or Sclerosis Neurological: Alert and Oriented x 3, NL Sensation, NL Muscle Strength and Tone Lines/Tubes/Other Access: Clean, Dry and Intact Peripheral IV Nutrition: Taking PO's Result Diagrams: 07/31/16 06:25 07/31/16 06:25 Additional Lab and Data: Lab Results 07/29/16 07/29/16 07/29/16 Range/Units 18:15 18:15 18:15 WBC 15.9 H (3.5-10.8) 10^3/ul RBC 2.55 L (4.0-5.4) 10^6/ul Hgb 8.0 L (14.0-18.0) g/dl Hct 24 L (42-52) % MCV 96 H (80-94) fL MCH 31 (27-31) pg MCHC 33 (31-36) g/dl RDW 19 H (10.5-15) % Plt Count 284 (150-450) 10^3/ul MPV 8 (7.4-10.4) um3 Neut % (Auto) 81.4 (38-83) % Lymph % (Auto) 10.4 L (25-47) % [place] % (Auto) 7.2 (1-9) % Eos % (Auto) 0.1 (0-6) % Baso % (Auto) 0.9 (0-2) % Absolute Neuts (auto) 12.9 H (1.5-7.7) 10^3/ul Absolute Lymphs (auto) 1.7 (1.0-4.8) 10^3/ul Absolute Monos (auto) 1.1 H (0-0.8) 10^3/ul Absolute Eos (auto) 0 (0-0.6) 10^3/ul Absolute Basos (auto) 0.1 (0-0.2) 10^3/ul Absolute Nucleated RBC 0.01 10^3/ul Nucleated RBC % 0.1 INR (Anticoag Therapy) (0.89-1.11) APTT (26.0-36.3) seconds Sodium 138 (133-145) mmol/L Potassium 4.1 (3.5-5.0) mmol/L Chloride 100 L (101-111) mmol/L Carbon Dioxide 30 (22-32) mmol/L Anion Gap 8 (2-11) mmol/L BUN 32 H (6-24) mg/dL Creatinine 1.16 (0.67-1.17) mg/dL Est GFR ( Amer) 79.4 (>60) Est GFR (Non-Af Amer) 61.7 (>60) BUN/Creatinine Ratio 27.6 H (8-20) Glucose 136 H (70-100) mg/dL Lactic Acid 2.1 H* (0.5-2.0) mmol/L Calcium 9.1 (8.6-10.3) mg/dL Total Bilirubin 0.70 (0.2-1.0) mg/dL AST 31 (13-39) U/L ALT 18 (7-52) U/L Alkaline Phosphatase 69 (34-104) U/L Total Creatine Kinase (10-223) U/L CK-MB (CK-2) (0.6-6.3) ng/mL Troponin I 3.07 H* (<0.04) ng/mL C-Reactive Protein 18.52 H (< 5.00) mg/L Total Protein 6.7 (6.4-8.9) g/dL Albumin 3.7 (3.2-5.2) g/dL Globulin 3.0 (2-4) g/dL Albumin/Globulin Ratio 1.2 (1-3) Lipase 51 (11.0-82.0) U/L Urine Color Urine Appearance Urine pH (5-9) Ur Specific [place] (1.010-1.030) Urine Protein (Negative) Urine Ketones (Negative) Urine Blood (Negative) Urine Nitrate (Negative) Urine Bilirubin (Negative) Urine Urobilinogen (Negative) Ur Leukocyte Esterase (Negative) Urine WBC (Auto) (Absent) Urine RBC (Auto) (Absent) Ur Squamous Epith Cells (Absent) Urine Bacteria (Absent) Urine Glucose (Negative) Blood Type Antibody Screen Crossmatch 07/29/16 07/29/16 07/29/16 Range/Units 18:15 18:15 19:10 WBC (3.5-10.8) 10^3/ul RBC (4.0-5.4) 10^6/ul Hgb (14.0-18.0) g/dl Hct (42-52) % MCV (80-94) fL MCH (27-31) pg MCHC (31-36) g/dl RDW (10.5-15) % Plt Count (150-450) 10^3/ul MPV (7.4-10.4) um3 Neut % (Auto) (38-83) % Lymph % (Auto) (25-47) % [place] % (Auto) (1-9) % Eos % (Auto) (0-6) % Baso % (Auto) (0-2) % Absolute Neuts (auto) (1.5-7.7) 10^3/ul Absolute Lymphs (auto) (1.0-4.8) 10^3/ul Absolute Monos (auto) (0-0.8) 10^3/ul Absolute Eos (auto) (0-0.6) 10^3/ul Absolute Basos (auto) (0-0.2) 10^3/ul Absolute Nucleated RBC 10^3/ul Nucleated RBC % INR (Anticoag Therapy) 1.73 H (0.89-1.11) APTT 37.5 H (26.0-36.3) seconds Sodium (133-145) mmol/L Potassium (3.5-5.0) mmol/L Chloride (101-111) mmol/L Carbon Dioxide (22-32) mmol/L Anion Gap (2-11) mmol/L BUN (6-24) mg/dL Creatinine (0.67-1.17) mg/dL Est GFR ( Amer) (>60) Est GFR (Non-Af Amer) (>60) BUN/Creatinine Ratio (8-20) Glucose (70-100) mg/dL Lactic Acid (0.5-2.0) mmol/L Calcium (8.6-10.3) mg/dL Total Bilirubin (0.2-1.0) mg/dL AST (13-39) U/L ALT (7-52) U/L Alkaline Phosphatase (34-104) U/L Total Creatine Kinase (10-223) U/L CK-MB (CK-2) (0.6-6.3) ng/mL Troponin I (<0.04) ng/mL C-Reactive Protein (< 5.00) mg/L Total Protein (6.4-8.9) g/dL Albumin (3.2-5.2) g/dL Globulin (2-4) g/dL Albumin/Globulin Ratio (1-3) Lipase (11.0-82.0) U/L Urine Color Yellow Urine Appearance Cloudy Urine pH 5.0 (5-9) Ur Specific [place] 1.012 (1.010-1.030) Urine Protein Negative (Negative) Urine Ketones Negative (Negative) Urine Blood Negative (Negative) Urine Nitrate Negative (Negative) Urine Bilirubin Negative (Negative) Urine Urobilinogen Negative (Negative) Ur Leukocyte Esterase 3+ H (Negative) Urine WBC (Auto) 3+(>20/hpf) H (Absent) Urine RBC (Auto) 3+(>10/hpf) H (Absent) Ur Squamous Epith Cells Present H (Absent) Urine Bacteria 1+ H (Absent) Urine Glucose Negative (Negative) Blood Type O Negative Antibody Screen Negative Crossmatch See Detail 07/29/16 Range/Units 20:15 WBC (3.5-10.8) 10^3/ul RBC (4.0-5.4) 10^6/ul Hgb (14.0-18.0) g/dl Hct (42-52) % MCV (80-94) fL MCH (27-31) pg MCHC (31-36) g/dl RDW (10.5-15) % Plt Count (150-450) 10^3/ul MPV (7.4-10.4) um3 Neut % (Auto) (38-83) % Lymph % (Auto) (25-47) % [place] % (Auto) (1-9) % Eos % (Auto) (0-6) % Baso % (Auto) (0-2) % Absolute Neuts (auto) (1.5-7.7) 10^3/ul Absolute Lymphs (auto) (1.0-4.8) 10^3/ul Absolute Monos (auto) (0-0.8) 10^3/ul Absolute Eos (auto) (0-0.6) 10^3/ul Absolute Basos (auto) (0-0.2) 10^3/ul Absolute Nucleated RBC 10^3/ul Nucleated RBC % INR (Anticoag Therapy) (0.89-1.11) APTT (26.0-36.3) seconds Sodium (133-145) mmol/L Potassium (3.5-5.0) mmol/L Chloride (101-111) mmol/L Carbon Dioxide (22-32) mmol/L Anion Gap (2-11) mmol/L BUN (6-24) mg/dL Creatinine (0.67-1.17) mg/dL Est GFR ( Amer) (>60) Est GFR (Non-Af Amer) (>60) BUN/Creatinine Ratio (8-20) Glucose (70-100) mg/dL Lactic Acid (0.5-2.0) mmol/L Calcium (8.6-10.3) mg/dL Total Bilirubin (0.2-1.0) mg/dL AST (13-39) U/L ALT (7-52) U/L Alkaline Phosphatase (34-104) U/L Total Creatine Kinase 148 (10-223) U/L CK-MB (CK-2) 43.8 H (0.6-6.3) ng/mL Troponin I 1.65 H* (<0.04) ng/mL C-Reactive Protein (< 5.00) mg/L Total Protein (6.4-8.9) g/dL Albumin (3.2-5.2) g/dL Globulin (2-4) g/dL Albumin/Globulin Ratio (1-3) Lipase (11.0-82.0) U/L Urine Color Urine Appearance Urine pH (5-9) Ur Specific [place] (1.010-1.030) Urine Protein (Negative) Urine Ketones (Negative) Urine Blood (Negative) Urine Nitrate (Negative) Urine Bilirubin (Negative) Urine Urobilinogen (Negative) Ur Leukocyte Esterase (Negative) Urine WBC (Auto) (Absent) Urine RBC (Auto) (Absent) Ur Squamous Epith Cells (Absent) Urine Bacteria (Absent) Urine Glucose (Negative) Blood Type Antibody Screen Crossmatch Microbiology and Other Data: Microbiology 07/29/16 22:05 Nasal Screen MRSA (PCR)(ASHLEY) - Final Nasal Mrsa Negative Assess/Plan/Problems-Billing Assessment: Mr. Garza is a 71 yo male with a PMH of recent thrombembolic CVA , history of known obstructive CAD who presents to the ED with lethargy, nausea and vomiting found to have a GI bleed with black tarry stool, acute OR and pneumonia in the setting of xarelto and aspirin. - Patient Problems (1) GI bleed Comment: - Last BM evening 07/29. Total of 2 units PRBCs. on admission HH 7.4/23 up to 10.2/31 this am; continue trending HH. Goal to keep HH > 10/30 in the setting of NSTEMI - Appreciate GI consult - plan for upper endocopy today. Pt will need video fluroscopy; and possible peg tube placement if he is aspirating. GI spoke to family and they are considering the option but pt will require video swallowing most likely wednesday. - continue protonix gtt (2) NSTEMI (non-ST elevated myocardial infarction) Comment: - No Chest Pain - Known obstructive CAD suspect demand related acute OR in the setting of GI bleed - Trop peaked 42 - appreciate cardiology consult. Goal HH 05/10. continue BB, statin. - Echo showing EF 35-40%, mod-severe (3) Pneumonia Comment: - CT showing left > right basilar pneumonia. Aspiration? O2 sats 100% on RA - continue levaquin. (4) Recent cerebrovascular accident (CVA) Comment: MRI brain small subacute nonhemorrhagic infarct of the left lateral medulla Thought to be embolic CVA started on Xarelto. Has residual Left hemiparesis. Hold ASA and xarelto. Pt will need anticoagulation if/when cleared by GI (5) A-fib Comment: - Continue BB - Per cardiology if pt was to go back on anticoagualtion (with GI clearance) recommends Eliquis 5 mg BID with recommendation to hold anti-platelets (6) DM2 (diabetes mellitus, type 2) Comment: : A1c <6 - diet controlled diabetes but noted to have high FSBGs - FSBG Q6hr with lispro SS (7) HTN (hypertension) Comment: - continue Metoprolol (8) DNR (do not resuscitate) Status and Disposition: Inpatient with GI Bleed, Pneumonia and NSTEMI.
[2016-07-31] MEDS ORDERED: Midazolam* 1 MG/ML 10 ML VIAL (10 MG) ONE (13:33)
[2016-07-31] MEDS ORDERED: fentaNYL* 50 MCG/ML 2 ML VIAL (100 MCG VIAL) ONE (13:33)
[2016-07-31] MEDS: Atorvastatin* 40 MG TAB PO SCH (19:47)
[2016-07-31] MEDS: Levofloxacin 500 MG IVPREMIX(* 500 MG/100 ML BAG IVPB SCH (20:00)
[2016-07-31] MEDS: Pantoprazole IV* 40 MG IV SCH (20:08)
[2016-08-01] MEDS: Insulin LISPRO* 1 UNITS UNIT SUBCUT SCH ×4 (00:41→17:58)
--- NOTE | 2016-08-01 01:32 | PRO ---
DATE OF PROCEDURE: 07/31/16 - ROOM #448 PROCEDURE PERFORMED: Gastroscopy with CLOtest biopsy. MEDICINES GIVEN: Versed 2 mg IV and fentanyl 25 mcg IV. NARRATIVE: This is a 71-year-old gentleman who recently had a stroke and has been on an anticoagulant. He presented with fatigue, anemia, and melena. He has been transfused and his hemoglobin has improved. His anticoagulant has been discontinued. Upper endoscopy is being carried out due to the concern of an upper GI bleeding source. PROCEDURE IN DETAIL: After the procedure was discussed with the patient and his sister, risks and benefits were outlined, written consent was obtained. The procedure was done in the intensive care unit. The patient was placed in the left lateral decubitus position and conscious sedation was administered. A video diagnostic gastroscope was inserted orally and passed very carefully into the esophagus. The esophagus, stomach, and duodenum through the second to third portion were well visualized. The patient tolerated the procedure well and there were no immediate complications. FINDINGS: The esophagus was normal. There was no evidence of erosion. The stomach was entered. It was free of any blood or coffee-ground material. The cardia, fundus, body and antrum of the stomach were all unremarkable without any inflammatory change or ulceration. The pylorus was normal and patent. However, the duodenal bulb was notable for two ulcers. They were each about 8 to 10 mm in size. They both had a clean white base without visible vessel or active hemorrhage. The surrounding tissue showed some mild inflammatory change. The second to third portion of the duodenum was normal with a normal folding pattern. I then did a CLOtest biopsy from the gastric antrum to evaluate the patient for H. pylori. CONCLUSION: Duodenal ulcers as described above. Low risk for rebleeding, biopsies for CLOtest obtained. RECOMMENDATION: The results were discussed with the patient and his sister. He should remain on PPI therapy and the CLOtest will be followed up on. The ulcers look low risk for bleeding and because of that I think it would be reasonable to restart his anticoagulants in perhaps 3 to 5 days. [id number]/[facility] #: [id number] MTDD
[2016-08-01] MEDS: Metoprolol Tartrate TAB* 25 MG PO SCH (03:31)
[2016-08-01 04:36] LABS: Hematocrit 32 % (42-52); Hemoglobin 10.3 g/dl (14.0-18.0); Mean Corpuscular HGB Conc 33 g/dl (31-36); Mean Corpuscular Hemoglobin 31 pg (27-31); Mean Corpuscular Volume 94 fL (80-94); Mean Platelet Volume 8 um3 (7.4-10.4); Red Blood Count 3.37 10^6/ul (4.0-5.4); Red Cell Distribution Width 18 % (10.5-15); White Blood Count 12.7 10^3/ul (3.5-10.8)
[2016-08-01 05:02] LABS: BUN/Creatinine Ratio 31.9 (8-20); Calcium 8.7 mg/dL (8.6-10.3); EGFR African American 79.4 (>60); EGFR Non-African American 61.7 (>60); Magnesium 2.4 mg/dL (1.9-2.7)
[2016-08-01] MEDS: Pantoprazole IV* 80 MG in NS 0.9% 250 ML* 250 ML IVPB SCH (05:39)
--- NOTE | 2016-08-01 09:20 | PN ---
Subjective Date of Service: 08/01/16 Interval History: f/u CO EGD yesterday PUD/duodenal ulcers low risk re-bleed Sitting up in chair AA0x3 but states he is confused No chest pain or dyspnea Still trouble with aspiration Tele: SR, no further arrhythmias Medications Active Medications: Acetaminophen (Tylenol Tab*) 975 mg PO Q12H PRN PRN Reason: FEVER/PAIN Albuterol (Ventolin 2.5 Mg/3 Ml Neb.Isabel*) 2.5 mg INH Q8H PRN PRN Reason: SHORTNESS OF BREATH Atorvastatin Calcium (Lipitor*) 40 mg PO 1700 [facility] Last Admin: 07/31/16 19:47 Dose: Not Given Citalopram Hydrobromide (Celexa Tab*) 20 mg PO DAILY [facility] Last Admin: 07/31/16 08:34 Dose: 20 mg Dextrose (D50w Syringe 50 Ml*) 12.5 gm IV PUSH .FOR FS < 60 - SS PRN PRN Reason: FS < 60 Fentanyl Citrate (Fentanyl*) 25 mcg IV SLOW PU Q1H PRN PRN Reason: PAIN Levofloxacin/Dextrose (Levaquin 500 Mg Ivpremix(*)) 500 mg in 100 mls @ 100 mls /hr IVPB Q24H [facility] Last Admin: 07/31/16 20:00 Dose: 100 mls/hr Insulin Human Lispro (Humalog*) 0 units SUBCUT FS Q6 ICU [facility] PRN Reason: Protocol Last Admin: 08/01/16 05:24 Dose: Not Given Metoprolol Tartrate (Lopressor Tab*) 25 mg PO Q8H [facility] Last Admin: 08/01/16 03:31 Dose: Not Given Pantoprazole Sodium (Protonix Iv*) 40 mg IV BID [facility] Last Admin: 07/31/16 20:08 Dose: 40 mg Objective Vital Signs: Temp Pulse Resp BP Pulse Ox 98.0 F 81 18 136/76 97 08/01/16 08:00 08/01/16 08:00 08/01/16 09:00 08/01/16 09:00 08/01/16 08:00 Oxygen Devices in Use Now: Nasal Cannula - 2LNC Appearance: nad, pleasant Ears/Nose/Mouth/Throat: Clear Oropharnyx, Mucous Membranes Moist Neck: Trachea Midline, - - could not do proper JVP assessment Respiratory: Symmetrical Chest Expansion and Respiratory Effort, - Cardiovascular: RRR, - - 2/6 systolic murmur Abdominal: NL Sounds; No Tenderness; No Distention Extremities: No Clubbing, Cyanosis Skin: No Rash or Ulcers Neurological: Alert and Oriented x 3 Laboratory Results: 08/01/16 04:28 08/01/16 04:28 INR (Anticoag Therapy) 1.73 (0.89-1.11) H 07/29/16 18:15 APTT 37.5 seconds (26.0-36.3) H 07/29/16 18:15 Total Bilirubin 0.70 mg/dL (0.2-1.0) 07/29/16 18:15 AST 31 U/L (13-39) 07/29/16 18:15 ALT 18 U/L (7-52) 07/29/16 18:15 Alkaline Phosphatase 69 U/L (34-104) 07/29/16 18:15 CK-MB (CK-2) 43.8 ng/mL (0.6-6.3) H 07/29/16 20:15 Total Protein 6.7 g/dL (6.4-8.9) 07/29/16 18:15 Albumin 3.7 g/dL (3.2-5.2) 07/29/16 18:15 Globulin 3.0 g/dL (2-4) 07/29/16 18:15 Albumin/Globulin Ratio 1.2 (1-3) 07/29/16 18:15 07/29/16 07/30/16 07/30/16 23:41 03:33 09:45 Troponin I 2.36 H* 12.73 H* 33.58 H* 07/30/16 07/30/16 07/30/16 13:05 17:24 22:20 Troponin I 36.41 H* 36.57 H* 42.28 H* 07/31/16 02:36 Troponin I 30.58 H* Diagnostic Imaging: Coronary angiogram 01/2009: (history of multiple Lcx stenting): No LM or LAD stenosis, RCA small non-dominant vessel without disease. Dominant Lcx with extensive stenting and severe distal disease medically treated. EKG Data: ekg 07/07/2016: Rapid afib ekg 07/07/2016: NSR, incmplete RBBB with nonspecific st changes EKG 07/30/2016: NSR, RBBB, aVR mild elevation with subtle diffuse ST depression more suggestive of global ischemia, less pronounced than 07/29 admission EKG Assessment/Plan 71 year old man with a history of known obstructive CAD/PCI, recent AFib and CVA was at rehab facility anti-coagulated with xarelto 15 mg PO BID and aspirin admitted with a GI bleed and acute CO peak cTnI 42 with LVEF 35-40%, early NSVT now resolved, moderate to severe low gradient . Chest pain now resolved with pRBC transfusion has required furosemide, pulmonary edema resolved and no longer requiring. I think CO is either from type 2 supply/demand CO from anemia , Lcx stent thrombosis related to acute bleeding episode and/or global ischemia from anemia and aortic stenosis. EGD 07/31/2016 with duodenal ulcers low risk for re-bleed was ok to restart anti-coagulation in 3-5 days - Continue metoprolol to 25 mg PO TID and change to toprol once stable - Continue intensive dose statin - Once K+ more normal and creatinine stable would add AceI - Keep Hgb > 10 - Would restart anti-coagulation eliquis 5 mg PO BID alone (without anti- platelet aspirin) as this anticoagulant has lowest risk of GI bleeding in the time frame that was ok with GI Thank you for allowing me to participate in the cardiovascular care of this patient. Please do not hesitate to contact me with questions or concerns.
--- NOTE | 2016-08-01 09:43 | PN ---
Subjective Date of Service: 08/01/16 Interval History: Patient seen this morning after nursing reported coughing/choking with HTL. Patient reports no complaints, voice is very gurgly. No chest pain, abdominal pain, does not feel SOB. Understands he needs to remain NPO for now. He is adamant that he would not want a feeding tube under any circumstances and would rather . Family History: Unchanged from Admission Social History: Unchanged from Admission Past Medical History: Unchanged from Admission Objective Active Medications: Acetaminophen (Tylenol Tab*) 975 mg PO Q12H PRN Albuterol (Ventolin 2.5 Mg/3 Ml Neb.Isabel*) 2.5 mg INH Q8H PRN Dextrose (D50w Syringe 50 Ml*) 12.5 gm IV PUSH .FOR FS < 60 - SS PRN Fentanyl Citrate (Fentanyl*) 25 mcg IV SLOW PU Q1H PRN Levofloxacin/Dextrose (Levaquin 500 Mg Ivpremix(*)) 500 mg in 100 mls @ 100 mls /hr IVPB Q24H [facility] Insulin Human Lispro (Humalog*) 0 units SUBCUT FS Q6 ICU [facility] Metoprolol Tartrate (Lopressor Iv*) 5 mg IV Q6H [facility] Pantoprazole Sodium (Protonix Iv*) 40 mg IV BID [facility] Vital Signs 07/31/16 07/31/16 07/31/16 10:00 11:00 11:04 Temperature 99.1 F 98.8 F 98.8 F Pulse Rate 71 71 82 Respiratory 19 16 14 Rate Blood Pressure 99/60 92/56 (mmHg) O2 Sat by Pulse 99 100 98 Oximetry 07/31/16 07/31/16 07/31/16 14:00 15:00 15:33 Temperature 98.3 F 98.0 F 98.0 F Pulse Rate 67 Respiratory 17 16 19 Rate Blood Pressure 106/55 106/54 107/60 (mmHg) O2 Sat by Pulse 95 Oximetry 07/31/16 07/31/16 07/31/16 15:35 15:40 15:45 Temperature 98.1 F 98.0 F 98.1 F Pulse Rate 75 72 76 Respiratory 14 19 18 Rate Blood Pressure 101/57 99/70 108/64 (mmHg) O2 Sat by Pulse 90 99 100 Oximetry 08/01/16 08/01/16 08/01/16 07:00 08:00 09:00 Temperature 98.4 F 98.0 F Pulse Rate 81 81 Respiratory 18 19 18 Rate Blood Pressure 115/57 113/58 136/76 (mmHg) O2 Sat by Pulse 98 97 Oximetry Oxygen Devices in Use Now: Nasal Cannula - 2LNC Appearance: Elderly, M, sitting in chair in NAD Eyes: No Scleral Icterus Ears/Nose/Mouth/Throat: Mucous Membranes Moist Neck: NL Appearance and Movements; NL JVP Respiratory: Symmetrical Chest Expansion and Respiratory Effort, - - Coarse BS throughout, mostly transmitted from upper airways, no wheezing Cardiovascular: NL Sounds; No Murmurs; No JVD, RRR Abdominal: NL Sounds; No Tenderness; No Distention Lymphatic: No Cervical Adenopathy Extremities: No Edema Skin: No Rash or Ulcers Neurological: Alert and Oriented x 3 Result Diagrams: 08/01/16 04:28 08/01/16 04:28 Additional Lab and Data: Microbiology and Other Data: Assess/Plan/Problems-Billing Assessment: Mr. Garza is a 71 yo male with a PMH of recent thrombembolic CVA , history of known obstructive CAD who presents to the ED with lethargy, nausea and vomiting found to have a GI bleed with black tarry stool, acute DC and pneumonia in the setting of xarelto and aspirin, now with progressive dysphagia. - Patient Problems (1) Dysphagia Current Visit: Yes Comment: Did not tolerate HTL 08/01 AM. Will make NPO for now with maintenance fluids. Holding PO meds. [employer] re-eval, plan for FEES. Seems that patient does not want PEG tube. Consider PC consult next week pending FEES and [employer] recs. (2) GI bleed Current Visit: Yes Comment: - Total of 2 units PRBCs. H/H stable. Goal to keep HH > 10/30 in the setting of NSTEMI - Appreciate GI consult, EGD on 07/31 showed 2 low-risk, small duodenal ulcers. - continue protonix BID (3) NSTEMI (non-ST elevated myocardial infarction) Current Visit: Yes Comment: - No Chest Pain - Known obstructive CAD suspect demand related acute DC in the setting of GI bleed - Trop peaked 42 - appreciate cardiology consult. Goal HH 10/30. continue BB (IV metoprolol while NPO), statin (if able to take PO) - Echo showing EF 35-40%, mod-severe (4) Pneumonia Current Visit: Yes Comment: - CT showing left > right basilar pneumonia. Aspiration? - continue levaquin (Day 4 ABx) (5) Recent cerebrovascular accident (CVA) Current Visit: Yes Comment: Last admission, MRI brain showed small subacute nonhemorrhagic infarct of the left lateral medulla Thought to be embolic CVA started on Xarelto. Has residual Left hemiparesis. Holding ASA and xarelto. Can potentially restart AC 08/03 (6) A-fib Current Visit: Yes Comment: - Continue BB - Per cardiology if pt was to go back on anticoagualtion (with GI clearance) recommends Eliquis 5 mg BID with recommendation to hold anti-platelets (7) DM2 (diabetes mellitus, type 2) Current Visit: Yes Comment: : A1c <6 - diet controlled diabetes but noted to have high FSBGs - FSBG Q6hr with lispro SS (8) HTN (hypertension) Current Visit: Yes Comment: - continue Metoprolol (9) DNR (do not resuscitate) Current Visit: Yes Status: Acute Status and Disposition: Inpatient with GI Bleed, Pneumonia and NSTEMI.
[2016-08-01] MEDS: Metoprolol Tartrate IV* 1 MG/ML 5 ML VIAL IV SCH ×3 (09:48→21:13)
[2016-08-01] MEDS: NS 0.9% 1000 ML* 1,000 ML IV SCH (09:49)
[2016-08-01] MEDS: Pantoprazole IV* 40 MG IV SCH ×2 (09:49→20:18)
[2016-08-01] MEDS: Citalopram TAB* 20 MG PO SCH (10:01)
[2016-08-01] MEDS: Levofloxacin 500 MG IVPREMIX(* 500 MG/100 ML BAG IVPB SCH (20:18)
[2016-08-02] MEDS: Insulin LISPRO* 1 UNITS UNIT SUBCUT SCH ×4 (01:22→17:53)
[2016-08-02] MEDS: NS 0.9% 1000 ML* 1,000 ML IV SCH ×2 (01:41→16:32)
[2016-08-02] MEDS: Metoprolol Tartrate IV* 1 MG/ML 5 ML VIAL IV SCH ×4 (04:11→21:38)
[2016-08-02 08:03] LABS: Calcium 8.2 mg/dL (8.6-10.3); EGFR Non-African American 81.7 (>60); Potassium 4.1 mmol/L (3.5-5.0)
[2016-08-02] MEDS: Pantoprazole IV* 40 MG IV SCH ×2 (08:26→20:04)
[2016-08-02] MEDS ORDERED: Influenza VAC *QUAD* 2016-17* 0.5 ML SYRINGE IM ONE (09:00)
--- NOTE | 2016-08-02 09:44 | PN ---
Subjective Date of Service: 08/02/16 Interval History: f/u MN AA0x3 but states clear evidence memory issues No chest pain or dyspnea Issues with aspiration, no taking PO Tele: SR, no arrhythmias Medications Active Medications: Acetaminophen (Tylenol Tab*) 975 mg PO Q12H PRN PRN Reason: FEVER/PAIN Albuterol (Ventolin 2.5 Mg/3 Ml Neb.Isabel*) 2.5 mg INH Q8H PRN PRN Reason: SHORTNESS OF BREATH Dextrose (D50w Syringe 50 Ml*) 12.5 gm IV PUSH .FOR FS < 60 - SS PRN PRN Reason: FS < 60 Fentanyl Citrate (Fentanyl*) 25 mcg IV SLOW PU Q1H PRN PRN Reason: PAIN Levofloxacin/Dextrose (Levaquin 500 Mg Ivpremix(*)) 500 mg in 100 mls @ 100 mls /hr IVPB Q24H [facility] Last Admin: 08/01/16 20:18 Dose: 100 mls/hr Sodium Chloride (Ns 0.9% 1000 Ml*) 1,000 mls @ 75 mls/hr IV PER RATE [facility] Last Admin: 08/02/16 01:41 Dose: 75 mls/hr Insulin Human Lispro (Humalog*) 0 units SUBCUT FS Q6 ICU [facility] PRN Reason: Protocol Last Admin: 08/02/16 05:04 Dose: Not Given Metoprolol Tartrate (Lopressor Iv*) 5 mg IV Q6H [facility] Last Admin: 08/02/16 04:11 Dose: 5 mg Pantoprazole Sodium (Protonix Iv*) 40 mg IV BID [facility] Last Admin: 08/02/16 08:26 Dose: 40 mg Objective Vital Signs: Temp Pulse Resp BP Pulse Ox 98.3 F 85 14 99/67 100 08/02/16 07:28 08/02/16 07:28 08/02/16 07:28 08/02/16 07:28 08/02/16 07:28 Oxygen Devices in Use Now: Nasal Cannula - 2LNC Appearance: nad, pleasant Ears/Nose/Mouth/Throat: Clear Oropharnyx, Mucous Membranes Moist Neck: Trachea Midline, - - could not do proper JVP assessment Respiratory: Symmetrical Chest Expansion and Respiratory Effort, - Cardiovascular: RRR, - - 2/6 systolic murmur Abdominal: NL Sounds; No Tenderness; No Distention Extremities: No Clubbing, Cyanosis Skin: No Rash or Ulcers Neurological: Alert and Oriented x 3 Laboratory Results: 08/01/16 04:28 08/02/16 07:27 INR (Anticoag Therapy) 1.73 (0.89-1.11) H 07/29/16 18:15 APTT 37.5 seconds (26.0-36.3) H 07/29/16 18:15 Total Bilirubin 0.70 mg/dL (0.2-1.0) 07/29/16 18:15 AST 31 U/L (13-39) 07/29/16 18:15 ALT 18 U/L (7-52) 07/29/16 18:15 Alkaline Phosphatase 69 U/L (34-104) 07/29/16 18:15 CK-MB (CK-2) 43.8 ng/mL (0.6-6.3) H 07/29/16 20:15 Total Protein 6.7 g/dL (6.4-8.9) 07/29/16 18:15 Albumin 3.7 g/dL (3.2-5.2) 07/29/16 18:15 Globulin 3.0 g/dL (2-4) 07/29/16 18:15 Albumin/Globulin Ratio 1.2 (1-3) 07/29/16 18:15 07/29/16 07/30/16 07/30/16 23:41 03:33 09:45 Troponin I 2.36 H* 12.73 H* 33.58 H* 07/30/16 07/30/16 07/30/16 13:05 17:24 22:20 Troponin I 36.41 H* 36.57 H* 42.28 H* 07/31/16 02:36 Troponin I 30.58 H* Diagnostic Imaging: Coronary angiogram 01/2009: (history of multiple Lcx stenting): No LM or LAD stenosis, RCA small non-dominant vessel without disease. Dominant Lcx with extensive stenting and severe distal disease medically treated. EKG Data: ekg 07/07/2016: Rapid afib ekg 07/07/2016: NSR, incmplete RBBB with nonspecific st changes EKG 07/30/2016: NSR, RBBB, aVR mild elevation with subtle diffuse ST depression more suggestive of global ischemia, less pronounced than 07/29 admission EKG Assessment/Plan 71 year old man with a history of known obstructive CAD/PCI, recent AFib and CVA was at rehab facility anti-coagulated with xarelto 15 mg PO BID and aspirin admitted with a GI bleed and acute MN peak cTnI 42 with LVEF 35-40%, early NSVT now resolved, moderate to severe low gradient . Chest pain now resolved with pRBC transfusion had required furosemide, pulmonary edema resolved and no longer requiring. I think MN is either from type 2 supply/demand MN from anemia , Lcx stent thrombosis related to acute bleeding episode and/or global ischemia from anemia and aortic stenosis. EGD 07/31/2016 with duodenal ulcers low risk for re-bleed was ok to restart anti-coagulation in 3-5 days now on PPI. Now with difficulty with aspiration not taking PO - IV beta-yeimi continued, change to toprol once taking PO - restart intensive dose statin once taking PO - would add AceI once taking PO - Keep Hgb > 10 - Would restart anti-coagulation eliquis 5 mg PO BID alone (without anti- platelet aspirin) as this anticoagulant has lowest risk of GI bleeding in the time frame that was ok with GI - Will arrange cardiology follow up Thank you for allowing me to participate in the cardiovascular care of this patient. Please do not hesitate to contact me with questions or concerns.
[2016-08-02] MEDS ORDERED: Aspirin SUPP* 300 MG PR ONE (14:00)
[2016-08-02 14:12] LABS: Hematocrit 32 % (42-52); Hemoglobin 10.4 g/dl (14.0-18.0); Mean Corpuscular HGB Conc 32 g/dl (31-36); Mean Corpuscular Hemoglobin 31 pg (27-31); Mean Corpuscular Volume 96 fL (80-94); Mean Platelet Volume 8 um3 (7.4-10.4); Red Blood Count 3.38 10^6/ul (4.0-5.4); Red Cell Distribution Width 17 % (10.5-15); White Blood Count 10.7 10^3/ul (3.5-10.8)
[2016-08-02 14:22] LABS: BUN/Creatinine Ratio 31.9 (8-20); Calcium 8.3 mg/dL (8.6-10.3); EGFR Non-African American 81.7 (>60); Potassium 4.5 mmol/L (3.5-5.0)
[2016-08-02 14:29] LABS: Troponin I 8.83 ng/mL (<0.04)
--- NOTE | 2016-08-02 14:44 | PN ---
Subjective Date of Service: 08/02/16 Interval History: Patient seen this morning. Was feeling well. Still with gurgling, asking repeatedly when he can eat and drink. No bleeding. Later in the early afternoon , patient noted to have leakage around his mccrary with bladder scan showing > 600 cc. Shortly after patient became unresponsive, CAT called. Initial SBP was low in 80s, patient slowly began to respond and was then complaining of chest pain. EKG showed no changes, troponin seems to still be trending down, CP resolved within a few minutes. Family History: Unchanged from Admission Social History: Unchanged from Admission Past Medical History: Unchanged from Admission Objective Active Medications: Acetaminophen (Tylenol Tab*) 975 mg PO Q12H PRN PRN Reason: FEVER/PAIN Albuterol (Ventolin 2.5 Mg/3 Ml Neb.Isabel*) 2.5 mg INH Q8H PRN PRN Reason: SHORTNESS OF BREATH Aspirin (Aspirin Supp*) 300 mg KS DAILY [facility] Dextrose (D50w Syringe 50 Ml*) 12.5 gm IV PUSH .FOR FS < 60 - SS PRN PRN Reason: FS < 60 Fentanyl Citrate (Fentanyl*) 25 mcg IV SLOW PU Q1H PRN PRN Reason: PAIN Levofloxacin/Dextrose (Levaquin 500 Mg Ivpremix(*)) 500 mg in 100 mls @ 100 mls /hr IVPB Q24H [facility] Last Admin: 08/01/16 20:18 Dose: 100 mls/hr Sodium Chloride (Ns 0.9% 1000 Ml*) 1,000 mls @ 75 mls/hr IV PER RATE [facility] Last Admin: 08/02/16 01:41 Dose: 75 mls/hr Insulin Human Lispro (Humalog*) 0 units SUBCUT FS Q6 ICU [facility] PRN Reason: Protocol Last Admin: 08/02/16 11:49 Dose: Not Given Metoprolol Tartrate (Lopressor Iv*) 5 mg IV Q6H [facility] Last Admin: 08/02/16 11:35 Dose: 5 mg Morphine Sulfate (Morphine Inj (Syringe)*) 3 mg IV Q4H PRN PRN Reason: Pain/Chest pain Pantoprazole Sodium (Protonix Iv*) 40 mg IV BID [facility] Last Admin: 08/02/16 08:26 Dose: 40 mg Vital Signs 08/01/16 08/01/16 08/01/16 16:00 19:23 19:43 Temperature 98.5 F 98.4 F Pulse Rate 87 70 Respiratory 16 16 16 Rate Blood Pressure 110/69 114/58 (mmHg) O2 Sat by Pulse 100 100 Oximetry 08/02/16 08/02/16 08/02/16 00:04 03:48 07:28 Temperature 98.6 F 98.0 F 98.3 F Pulse Rate 73 80 85 Respiratory 16 16 14 Rate Blood Pressure 106/56 111/63 99/67 (mmHg) O2 Sat by Pulse 99 100 100 Oximetry 08/02/16 08/02/16 08/02/16 11:17 13:20 13:30 Temperature 97.7 F 98.5 F Pulse Rate 85 88 92 Respiratory 24 28 Rate Blood Pressure 122/68 84/44 151/66 (mmHg) O2 Sat by Pulse 100 96 99 Oximetry 08/02/16 08/02/16 13:34 13:41 Temperature Pulse Rate 78 83 Respiratory Rate Blood Pressure 111/65 117/67 (mmHg) O2 Sat by Pulse 96 94 Oximetry Oxygen Devices in Use Now: Nasal Cannula - 2LNC Appearance: Elderly, M, laying in bed in NAD, gurgly voice Eyes: No Scleral Icterus Ears/Nose/Mouth/Throat: Mucous Membranes Moist Neck: NL Appearance and Movements; NL JVP Respiratory: Symmetrical Chest Expansion and Respiratory Effort, - - Noisy, ronchi throughout, likely transmitted from upper airways Cardiovascular: NL Sounds; No Murmurs; No JVD, RRR Abdominal: NL Sounds; No Tenderness; No Distention Lymphatic: No Cervical Adenopathy Extremities: No Edema Skin: No Rash or Ulcers Neurological: - - Alert, oriented Result Diagrams: 08/02/16 13:30 08/02/16 13:30 Additional Lab and Data: Microbiology and Other Data: Assess/Plan/Problems-Billing Assessment: Mr. Garza is a 71 yo male with a PMH of recent thrombembolic CVA , history of known obstructive CAD who presents to the ED with lethargy, nausea and vomiting found to have a GI bleed with black tarry stool, acute AK and pneumonia in the setting of xarelto and aspirin, now with progressive dysphagia. - Patient Problems (1) NSTEMI (non-ST elevated myocardial infarction) Current Visit: Yes Comment: - CP on 08/02 associated with hypotension and unresponsive episode, EKG unchanged , troponin likely continuing to trend down, restarted ASA KS which we will continue until able to take AC - appreciate cardiology consult. Goal HH 10/30. continue BB (IV metoprolol while NPO), statin (if able to take PO) - Echo showing EF 35-40%, mod-severe (2) Dysphagia Current Visit: Yes Comment: Did not tolerate HTL 08/01 AM. Continue NPO with maintenance fluids. Holding PO meds. [employer] re-eval, plan for FEES. Seems that patient does not want PEG tube. Consider PC consult next week pending FEES and [employer] recs. (3) GI bleed Current Visit: Yes Comment: - Total of 2 units PRBCs. H/H stable. Goal to keep HH > 10/30 in the setting of NSTEMI - Appreciate GI consult, EGD on 07/31 showed 2 low-risk, small duodenal ulcers. - continue protonix BID (4) Pneumonia Current Visit: Yes Comment: - CT showing left > right basilar pneumonia. Aspiration? - continue levaquin (Day 5 ABx) (5) Recent cerebrovascular accident (CVA) Current Visit: Yes Comment: Last admission, MRI brain showed small subacute nonhemorrhagic infarct of the left lateral medulla Thought to be embolic CVA started on Xarelto. Has residual Left hemiparesis. Holding xarelto. Can potentially restart AC 08/03 if able to take PO. (6) A-fib Current Visit: Yes Comment: - Continue BB - Per cardiology if pt was to go back on anticoagualtion (with GI clearance) recommends Eliquis 5 mg BID with recommendation to hold anti-platelets (7) DM2 (diabetes mellitus, type 2) Current Visit: Yes Comment: : A1c <6 - diet controlled diabetes but noted to have high FSBGs - FSBG Q6hr with lispro SS (8) HTN (hypertension) Current Visit: Yes Comment: - continue Metoprolol (9) DNR (do not resuscitate) Current Visit: Yes Status: Acute Status and Disposition: Inpatient with GI Bleed, Pneumonia and NSTEMI.
[2016-08-02] MEDS: Levofloxacin 500 MG IVPREMIX(* 500 MG/100 ML BAG IVPB SCH (20:05)
[2016-08-03] MEDS: Morphine INJ* 4 MG/ML 1 ML CARPUJECT IV PRN ×2 (01:01→06:04)
[2016-08-03] MEDS: Insulin LISPRO* 1 UNITS UNIT SUBCUT SCH ×2 (01:39→06:03)
[2016-08-03] MEDS: Metoprolol Tartrate IV* 1 MG/ML 5 ML VIAL IV SCH ×2 (04:29→09:42)
--- NOTE | 2016-08-03 05:42 | PN ---
Progress Note - Progress Note Note: CAT response note Upon arrival, Nursing reports Mr Carter reporting acutely blurred vision. Vitals are stable. Glucose is 150s. Mr Carter has no complaints other than "foggy" vision. Testing reveals it to be bilateral and not improved by putting his glasses on. No focal neurologic deficits are noted on exam. His voice is weak and gurgling. He initially refused Yankar suctioning, but eventually agreed with good return. He denies chest pain, SOB, N/V, pain, or other issues. He is adamant that he wants to eat. He is scheduled for a swallowing evaluation this AM. He is very clear that he does not want any aggressive measures done. He specifically states repetitively and emphatically that he does not want a feeding tube. AM labs are to be drawn. No indication for radiologic studies at this time. Nursing instructed to continue monitoring and report new findings or changes.
[2016-08-03 06:40] LABS: Hematocrit 33 % (42-52); Hemoglobin 10.6 g/dl (14.0-18.0); Mean Corpuscular HGB Conc 33 g/dl (31-36); Mean Corpuscular Hemoglobin 31 pg (27-31); Mean Corpuscular Volume 95 fL (80-94); Mean Platelet Volume 8 um3 (7.4-10.4); Red Blood Count 3.45 10^6/ul (4.0-5.4); Red Cell Distribution Width 17 % (10.5-15); White Blood Count 9.1 10^3/ul (3.5-10.8)
[2016-08-03 07:03] LABS: BUN/Creatinine Ratio 26.3 (8-20); Calcium 8.2 mg/dL (8.6-10.3); EGFR African American 95.3 (>60); EGFR Non-African American 74.1 (>60); Potassium 4.2 mmol/L (3.5-5.0)
[2016-08-03] MEDS: Pantoprazole IV* 40 MG IV SCH (08:09)
[2016-08-03] MEDS: NS 0.9% 1000 ML* 1,000 ML IV SCH (08:10)
[2016-08-03] MEDS ORDERED: Aspirin SUPP* 300 MG PR SCH (09:00)
[2016-08-03 10:41] VITALS: BP 116/83
--- NOTE | 2016-08-03 11:16 | PN ---
Hospitalist Progress Note CTSP for tachycardia. On arrival patient with HRs in 170s-180s, slightly wide complex in the setting of BBB but regular. Patient lethargic with significant gurgling when breathing and attempting to speak. Sister present in the room. Administered 5 mg of IV metoprolol with some slight improvement in the HR. Patient woke up at times, was agitated, saying he was having pain. At times was agreeable to focusing on comfort alone but other times shook his head no, difficult to conversate with the patient. RT called for deeper suctioning as we were unsuccessful with lulu. RT arrived and had large amount of thick, yellow phlegm removed with NT suction. During procedure patient likely had vasovagal reaction and became bradycardic, unresponsive and stopped breathing. Shortly after I was unable to appreciate any cardiac or breath sounds on ausculation, unable to palpate pulses. Pupils were fixed and non-reactive. Patient pronounced at 1020 AM. Sisters (HCP) present and declined autopsy. Family opted for [facility].
--- NOTE | 2016-08-04 09:17 | DS ---
SUMMARY: DATE OF ADMISSION: 07/29/16 DATE OF : 08/03/16 PRIMARY CARE PHYSICIAN: Unknown. CAUSE OF : Aspiration pneumonia secondary to cerebrovascular accident. HISTORY OF PRESENT ILLNESS AND HOSPITAL COURSE: The patient was admitted to the hospital. The patient presented to the hospital with vomiting and abdominal pain. He then became increasingly lethargic and came to the hospital and was found to be anemic. He also had an elevated troponin, which zane fairly rapidly and peaked at 42. There was concern for a GI bleed and the patient underwent an upper endoscopy, which showed 2 small duodenal ulcers. He was treated with Protonix. Throughout the hospitalization, the patient had dysphagia, which was present from his previous stroke. He initially was cleared for honey thickened liquids; however, he began to aspirate on this and was made n.p.o. He was initially transferred out of the ICU. Continued to have issues with aspiration. His voice was gurgly at all times. He was planned to undergo a swallow evaluation; however, on the date of his , he was quite lethargic in the morning and became very tachycardic with heart rates in the 170s to 180s. A palliative care consult had already been placed before this and I had discussed with his family that as he was adamant about not receiving a feeding tube if he was unable to swallow, comfort care may be the best approach. On evaluation of the patient, he was fairly lethargic. His heart rate responded somewhat to some IV metoprolol. I discussed with his sister that it may be a time to just focus on comfort as he has been very resistant to any interventions thus far, which she was agreeable to. In trying to have a conversation with the patient, it was difficult to know if he was understanding based on head nods alone and his voice was too gurgly to understand. I called the respiratory therapy to perform a NT suction. When this was done, there was a large amount of phlegm that was taken out, however the patient subsequently became unresponsive. When viewed on monitor, he had become bradycardic down to the 20s and then became asystolic. The patient was pronounced. Family declined autopsy. Cause of was aspiration pneumonia secondary to stroke. TIME SPENT: Total time spent on this discharge, 45 minutes. This is a summary of the hospitalization. Please see the full medical record for further details. [id number]/[facility] #: [id number] CARMEN
== END 2016-08-03 10:20 | disposition expired | DRG 177 ==
LOC: ED 16:39 → ICU 20:24 → MEDTELE 08-01 12:36
PROVIDERS: ADMIT Internal Medicine; ATTEND Hospitalist
PROC: 30233N1 Transfusion of Nonautologous Red Blood Cells into Peripheral Vein, Percutaneous Approach (ICD-10-PCS; 2016-07-30)
PROC: 0DB68ZX Excision of Stomach, Via Natural or Artificial Opening Endoscopic, Diagnostic (ICD-10-PCS; principal; 2016-07-31)
DX: J69.0 Pneumonitis due to inhalation of food and vomit (principal); I21.4 Non-ST elevation (NSTEMI) myocardial infarction; I47.2 Ventricular tachycardia; I11.0 Hypertensive heart disease with heart failure; I95.9 Hypotension, unspecified; F03.90 Unspecified dementia, unspecified severity, without behavioral disturbance, psychotic disturbance, mood disturbance, and anxiety; D62 Acute posthemorrhagic anemia; I50.9 Heart failure, unspecified; K26.9 Duodenal ulcer, unspecified as acute or chronic, without hemorrhage or perforation; K92.1 Melena; I69.354 Hemiplegia and hemiparesis following cerebral infarction affecting left non-dominant side; I48.91 Unspecified atrial fibrillation; E11.9 Type 2 diabetes mellitus without complications; Z91.018 Allergy to other foods; I25.10 Atherosclerotic heart disease of native coronary artery without angina pectoris; Z83.3 Family history of diabetes mellitus; E78.5 Hyperlipidemia, unspecified; I45.10 Unspecified right bundle-branch block; Z66 Do not resuscitate; I69.392 Facial weakness following cerebral infarction; I69.328 Other speech and language deficits following cerebral infarction; I35.0 Nonrheumatic aortic (valve) stenosis; I69.391 Dysphagia following cerebral infarction; R13.12 Dysphagia, oropharyngeal phase; Z51.5 Encounter for palliative care; I46.9 Cardiac arrest, cause unspecified; Z95.5 Presence of coronary angioplasty implant and graft
CPT/HCPCS: 36415; 70450; 71010; 71020; 74177; 80048; 80053; 81003; 81015; 82272; 82550; 82553; 83605; 83690; 83735; 84145; 84484; 85014; 85018; 85025; 85610; 85730; 86140; 86850; 86900; 86901; 86922; 87077; 87086; 87502; 87641; 93005; 93306; 94760; A9270-GY; J1940; J1956; J2250; J2270; J3010; J3480; J3490; P9040; Q9967